=== PATIENT | male | born 1960 | race Two or more races ===

== ENCOUNTER 2020-06-20 14:00 | Outpatient (RCR) | payer OTHER, SELFPAY ==
--- NOTE | 2020-07-01 15:18 | MHC.PT.DC ---
[facility] [place] Office [place] Office [place] Office [address] Sulma Nascimento [address] [phone] F: [phone] F: [phone] F: [phone] F: [phone] Physical Therapy Discharge Report Diagnosis: Back pain Date of Surgery: Date of Evaluation: 05/28/20 Date of Discharge: 06/20/20 Treatments to Date: 7 Cancellations to Date: 0 No Shows to Date: 0 Discharge Status: Achieved Goals Independent with HEP Discharge Summary: 06/20/20- Pt has been pain free for the last few days. He has achieved all goals set for him and is independent with all HEPS. Pt therefore d/c from therapy. Pt was in agreement with the plan. Electronically signed by: Adelia Acosta DPT Please sign and return to therapist. Thank you for your referral.
== END 2020-07-01 15:20 | disposition other institution (70) ==
LOC: HO.PT 14:00
PROVIDERS: PCP Internal Medicine; Visit Provider Student in an Organized Health Care Education/Training Program
DX: M54.5 Low back pain (principal)
CPT/HCPCS: 97110

== ENCOUNTER → 2020-08-23 08:10 | Outpatient (BNVA) | payer OTHER, SELFPAY | PROVIDERS: PCP Physician Assistant; Referring Provider Physician Assistant; Visit Provider Nurse Practitioner Gerontology | DX: E11.42 Type 2 diabetes mellitus with diabetic polyneuropathy (principal); E78.5 Hyperlipidemia, unspecified; I10 Essential (primary) hypertension | CPT/HCPCS: 82947; 99212 ==

== ENCOUNTER 2020-09-20 12:23 | Outpatient (REF) | payer OTHER, SELFPAY | END 2020-09-20 12:24 | disposition home or self-care (01) | LOC: HO.LAB 12:23 | PROVIDERS: PCP Internal Medicine; Visit Provider Internal Medicine | DX: Z20.828 Contact with and (suspected) exposure to other viral communicable diseases (principal) | CPT/HCPCS: 36415; C9803; U0003 ==

== ENCOUNTER → 2020-09-30 12:13 | Outpatient (BNVA) | payer OTHER, SELFPAY | PROVIDERS: PCP Internal Medicine; Visit Provider Nurse Practitioner Gerontology | DX: Z76.89 Persons encountering health services in other specified circumstances (principal) | CPT/HCPCS: Q3014 ==

== ENCOUNTER 2020-10-01 06:20 | Outpatient (REF) | payer OTHER, SELFPAY ==
[2020-10-01 07:38] LABS: Alanine Aminotransferase 39 U/L (0-40); Albumin Level 4.3 g/dL (3.5-5.0); Alkaline Phosphatase 94 U/L (39-117); Anion Gap 13 (12-20); Aspartate Amino Transferase 23 U/L (5-37); Bilirubin Total 0.4 mg/dL (0.0-1.0); Blood Urea Nitrogen 17 mg/dL (9-16); Carbon Dioxide 28 mmol/L (22-29); Chloride 105 mmol/L (96-108); Cholesterol 147 mg/dL; Estimated Glomerular Filt Rate > 60; Glucose Fasting 135 mg/dL (60-99); HDL Cholesterol 38 mg/dL; LDL Cholesterol Calculated 83 mg/dl; Potassium 4.7 mmol/l (3.3-5.1); Sodium 141 mmol/L (135-145); Total Protein 6.7 g/dL (6.5-8.0); Triglycerides 134 mg/dL
[2020-10-01 08:05] LABS: Estimated Average Glucose 123 mg/dL; Hemoglobin A1c % 5.9 %
[2020-10-01 09:09] LABS: Creatinine Urine 136.06 mg/dL; Microalbum/Creatinine Ratio Ur 8.8 ug/mg cr
== END 2020-10-01 06:21 | disposition home or self-care (01) ==
LOC: HO.LAB 06:20
PROVIDERS: PCP Internal Medicine; Visit Provider Nurse Practitioner Gerontology
DX: E11.42 Type 2 diabetes mellitus with diabetic polyneuropathy (principal)
CPT/HCPCS: 36415; 80053; 80061; 82043; 83036

== ENCOUNTER 2020-10-05 07:32 | Outpatient (REF) | payer OTHER, SELFPAY ==
[2020-10-05 09:14] LABS: Creatinine Urine 101.25 mg/dL; Microalbum/Creatinine Ratio Ur 7.9 ug/mg cr
== END 2020-10-05 07:33 | disposition home or self-care (01) ==
LOC: HO.LAB 07:32
PROVIDERS: PCP Internal Medicine; Visit Provider Internal Medicine
DX: E11.39 Type 2 diabetes mellitus with other diabetic ophthalmic complication (principal)
CPT/HCPCS: 82043

== ENCOUNTER 2020-10-09 15:43 | Outpatient (REF) | payer OTHER, SELFPAY | END 2020-10-09 15:44 | disposition home or self-care (01) | LOC: HO.LAB 15:43 | PROVIDERS: Visit Provider Internal Medicine | DX: Z20.822 Contact with and (suspected) exposure to COVID-19 (principal) | CPT/HCPCS: 36415; C9803; U0003 ==

== ENCOUNTER 2020-10-24 15:03 | Outpatient (REF) | payer OTHER, SELFPAY | END 2020-10-24 15:04 | disposition home or self-care (01) | LOC: HO.LAB 15:03 | PROVIDERS: Visit Provider Internal Medicine | DX: Z20.822 Contact with and (suspected) exposure to COVID-19 (principal) | CPT/HCPCS: 36415; C9803; U0003; U0005 ==

== ENCOUNTER → 2020-11-15 10:22 | Outpatient (BNVA) | payer OTHER, SELFPAY | PROVIDERS: PCP Internal Medicine; Visit Provider Student in an Organized Health Care Education/Training Program | DX: M47.816 Spondylosis without myelopathy or radiculopathy, lumbar region (principal); R20.0 Anesthesia of skin | CPT/HCPCS: 99212 ==

== ENCOUNTER → 2021-03-31 07:55 | Outpatient (BNVA) | payer OTHER, SELFPAY | PROVIDERS: PCP Internal Medicine; Visit Provider Nurse Practitioner Gerontology | DX: E11.42 Type 2 diabetes mellitus with diabetic polyneuropathy (principal); E78.5 Hyperlipidemia, unspecified; E66.09 Other obesity due to excess calories; I10 Essential (primary) hypertension; Z68.31 Body mass index [BMI] 31.0-31.9, adult | CPT/HCPCS: 82947; Q3014 ==

== ENCOUNTER 2021-06-18 05:59 | Outpatient (REF) | payer OTHER, SELFPAY ==
[2021-06-18 06:39] LABS: Alanine Aminotransferase 26 U/L (0-40); Albumin Level 4.3 g/dL (3.5-5.0); Alkaline Phosphatase 86 U/L (39-117); Anion Gap 10 (12-20); Aspartate Amino Transferase 19 U/L (5-37); Bilirubin Total 0.5 mg/dL (0.0-1.0); Blood Urea Nitrogen 19 mg/dL (9-16); Carbon Dioxide 29 mmol/L (22-29); Chloride 107 mmol/L (96-108); Cholesterol 181 mg/dL; Estimated Glomerular Filt Rate > 60; Glucose Fasting 129 mg/dL (60-99); HDL Cholesterol 35 mg/dL; LDL Cholesterol Calculated 110 mg/dl; Potassium 4.2 mmol/L (3.3-5.1); Sodium 142 mmol/L (135-145); Total Protein 6.6 g/dL (6.5-8.0); Triglycerides 181 mg/dL
[2021-06-18 09:09] LABS: Creatinine Urine 171.98 mg/dL; Microalbum/Creatinine Ratio Ur 10.4 ug/mg cr
[2021-06-23 13:41] LABS: Vitamin D 25-OH, D2 <4 ng/mL; Vitamin D 25-OH, D3 34 ng/mL; Vitamin D 25-OH, Total 34 ng/mL (30-100)
== END 2021-06-18 06:00 | disposition home or self-care (01) ==
LOC: HO.LAB 05:59
PROVIDERS: PCP Internal Medicine; Visit Provider Internal Medicine
DX: E11.42 Type 2 diabetes mellitus with diabetic polyneuropathy (principal); E78.5 Hyperlipidemia, unspecified; E55.9 Vitamin D deficiency, unspecified
CPT/HCPCS: 36415; 80053; 80061; 82043; 82306

== ENCOUNTER → 2021-07-21 09:39 | Outpatient (BNVA) | payer OTHER, SELFPAY | PROVIDERS: PCP Internal Medicine; Visit Provider Registered Nurse Diabetes Educator | DX: E11.42 Type 2 diabetes mellitus with diabetic polyneuropathy (principal); F17.210 Nicotine dependence, cigarettes, uncomplicated; Z79.4 Long term (current) use of insulin | CPT/HCPCS: 95250 ==

== ENCOUNTER → 2021-08-04 08:19 | Outpatient (BNVA) | payer OTHER, SELFPAY | PROVIDERS: PCP Internal Medicine; Visit Provider Nurse Practitioner Gerontology | DX: E11.42 Type 2 diabetes mellitus with diabetic polyneuropathy (principal); E66.09 Other obesity due to excess calories; E78.5 Hyperlipidemia, unspecified; I10 Essential (primary) hypertension; Z68.31 Body mass index [BMI] 31.0-31.9, adult | CPT/HCPCS: 82947; 99212 ==

== ENCOUNTER 2021-09-24 10:41 | Outpatient (REF) | payer OTHER, SELFPAY | END 2021-09-24 10:42 | disposition home or self-care (01) | LOC: HO.LAB 10:41 | PROVIDERS: Visit Provider Internal Medicine | DX: Z13.89 Encounter for screening for other disorder (principal) | CPT/HCPCS: C9803 ==

== ENCOUNTER 2021-11-05 10:44 | Outpatient (REF) | payer OTHER, SELFPAY ==
--- NOTE | 2021-11-05 11:09 | PFT_ITS ---
INDICATION: COPD. SPIROMETRY: The FEV1 to FVC of 78% with an FEV1 of 3.19 L, which is 117% predicted and an FVC of 4.11 L, which is 120% predicted. No significant response to bronchodilators noted. Maximum voluntary ventilation 100% predicted. LUNG VOLUMES: Total lung capacity 109% predicted with an expiratory reserve volume of 67% predicted. DIFFUSION CAPACITY: DLCO 82% predicted. COMPARISONS: None available. INTERPRETATION: No obstructive nor restrictive ventilatory defects have been identified. No significant response to bronchodilators noted. Normal lung volumes except for slight decrease in the expiratory reserve volume secondary to an elevated BMI. Diffusion capacity is low normal. If asthma is in the differential, a methacholine challenge may be helpful in assessing for hyper-reactive airways, otherwise clinical correlation warranted. Nasir Forde MD MR/MODL / [id number]
== END 2021-11-05 10:45 | disposition home or self-care (01) ==
LOC: HO.RESP 10:44
PROVIDERS: PCP Internal Medicine; Visit Provider Internal Medicine
DX: J44.9 Chronic obstructive pulmonary disease, unspecified (principal)
CPT/HCPCS: 94060; 94727

== ENCOUNTER 2021-11-19 10:40 | Outpatient (REF) | payer OTHER, SELFPAY ==
[2021-11-19 11:39] LABS: MANUAL DIFF FLAG NO
[2021-11-19 12:00] LABS: Basophils Percent Auto 0.1 % (0-2); Eosinophils Absolute Auto 0.2 X10*3/uL (0.0-0.4); Eosinophils Percent Auto 2.1 % (0-4); Hematocrit 46.6 % (42.0-52.0); Hemoglobin 15.8 g/dl (14.0-18.0); Imm Gran Abs Auto 0.02 X10*3/uL (0.00-0.03); Imm Gran Pct Auto 0.3 % (0.0-0.4); Lymphocytes Absolute Auto 1.5 X10*3/uL (1.2-4.9); Lymphocytes Percent Auto 20.6 % (20-40); Mean Corpuscular HGB Conc 33.9 g/dl (31.0-36.0); Mean Corpuscular Hemoglobin 31.1 pg (27.0-33.0); Mean Corpuscular Volume 91.7 fL (80.0-98.0); Mean Platelet Volume 11.7 fL (9.4-12.4); Monocytes Absolute Auto 0.4 X10*3/uL (0.1-1.2); Monocytes Percent Auto 5.6 % (2-11); Neutrophils Absolute Auto 5.3 x10*3/uL (2.0-8.3); Neutrophils Percent Auto 71.3 % (45-73); Platelet Count 206 X10*3/uL (160-400); Red Blood Count 5.08 X10*6/uL (4.60-5.80); Red Cell Distribution Width 12.2 % (11.0-16.0); White Blood Count 7.5 X10*3/uL (4.8-10.8)
[2021-11-19 12:21] LABS: Alanine Aminotransferase 30 U/L (0-40); Albumin Level 4.4 g/dL (3.5-5.0); Alkaline Phosphatase 107 U/L (39-117); Anion Gap 11 (12-20); Aspartate Amino Transferase 19 U/L (5-37); Bilirubin Total 0.4 mg/dL (0.0-1.0); Blood Urea Nitrogen 24 mg/dL (9-16); Calcium 9.9 mg/dL (8.4-10.2); Carbon Dioxide 31 mmol/L (22-29); Chloride 103 mmol/L (96-108); Cholesterol 155 mg/dL; Estimated Glomerular Filt Rate > 60; Glucose Fasting 166 mg/dL (60-99); HDL Cholesterol 32 mg/dL; Potassium 4.7 mmol/L (3.3-5.1); Sodium 140 mmol/L (135-145); Triglycerides 408 mg/dL
[2021-11-19 12:40] LABS: Erythrocyte Sedimentation Rate 5 MM/HR (0-15)
[2021-11-19 13:36] LABS: Creatinine Urine 96.97 mg/dL; Microalbum/Creatinine Ratio Ur 13.4 ug/mg cr
== END 2021-11-19 10:41 | disposition home or self-care (01) ==
LOC: HO.LAB 10:40
PROVIDERS: PCP Internal Medicine; Visit Provider Hospitalist
DX: E78.5 Hyperlipidemia, unspecified (principal); E11.42 Type 2 diabetes mellitus with diabetic polyneuropathy; J45.50 Severe persistent asthma, uncomplicated; R05.3 Chronic cough; F17.200 Nicotine dependence, unspecified, uncomplicated; Z71.6 Tobacco abuse counseling
CPT/HCPCS: 36415; 80053; 80061; 82043; 82785; 85025; 85652; 86003; 99202

== ENCOUNTER → 2021-11-20 08:32 | Outpatient (BNVA) | payer OTHER, SELFPAY | PROVIDERS: PCP Internal Medicine; Visit Provider Nurse Practitioner Gerontology | DX: E11.42 Type 2 diabetes mellitus with diabetic polyneuropathy (principal); I10 Essential (primary) hypertension; E78.5 Hyperlipidemia, unspecified; E66.09 Other obesity due to excess calories; Z68.31 Body mass index [BMI] 31.0-31.9, adult; Z79.4 Long term (current) use of insulin | CPT/HCPCS: 82947; 99212 ==

== ENCOUNTER 2022-01-02 15:26 | Outpatient (REF) | payer OTHER, SELFPAY ==
--- NOTE | ~2022-01-02 | CT_ITS ---
EXAMINATION: CT CHEST SCREENING CLINICAL INFORMATION: Nicotine dependence. 45 year smoker. COMPARISON: None. TECHNIQUE: Multidetector volumetric CT imaging of the chest is performed without contrast using low dose technique. Additional 2D coronal and sagittal reformatted images and axial 3D maximum intensity projection (MIP) images are generated on the CT workstation. This CT examination was performed using dose optimization techniques as appropriate, variously including the following: *Automated exposure control *Adjustment of mA and/or kV according to patient size (this includes techniques or standardized protocols for targeted exams where dose is matched to indication/reason for exam; i.e. extremities or head) *Use of iterative reconstruction technique DLP: 75 mGy-cm FINDINGS: LUNGS: There is a 2 mm calcified nodule right upper lobe image 134/6, 2 mm partially calcified nodule left upper lobe axial image 174/6, 2 mm calcified nodule left upper lobe axial image 174/6, 2 mm nodular thickening along the right minor fissure axial image 220/6 likely a small lymph node, 2 mm noncalcified nodule right upper lobe axial image 215/6, several 3 mm subpleural nodules left lower lobe axial image 276/6, 2 nodule left lower lobe subpleural-based axial image 264/6, several mm nodules adjacent to each other in right middle lobe 288/6 and 278/6. Image 280/6, 3 mm nodule right lower lobe axial image 343/6. MEDIASTINUM: The thyroid lobes are symmetrical and normal. The central trachea and the bronchi are widely patent. The heart size and the great vessels are normal caliber. No abnormal size mediastinal or hilar lymph nodes seen. Trace coronary artery calcifications seen. There is no pericardial effusion. PLEURA: There is no pleural effusion. No pleural mass or thickening. AXILLA: There are small shotty lymph nodes in the axilla. The chest wall appears unremarkable. UPPER ABDOMEN: Visualized liver, spleen, pancreas and bilateral adrenal glands are unremarkable. OSSEOUS STRUCTURES: No lytic or sclerotic process seen. CT/CT lung screening IMPRESSION: Several 2 mm and 3 mm calcified and noncalcified nodules. Otherwise lungs are clear. ASSESSMENT: Lung-RADS category 2: Benign. RECOMMENDATION: Low dose annual CT chest.
== END 2022-01-02 15:27 | disposition home or self-care (01) ==
LOC: HO.CT 15:26
PROVIDERS: PCP Internal Medicine; Visit Provider Physician Assistant Medical
DX: Z12.2 Encounter for screening for malignant neoplasm of respiratory organs (principal); F17.210 Nicotine dependence, cigarettes, uncomplicated
CPT/HCPCS: 71271

== ENCOUNTER → 2022-01-14 10:31 | Outpatient (BNVA) | payer OTHER, SELFPAY | PROVIDERS: PCP Internal Medicine; Visit Provider Hospitalist | DX: J45.40 Moderate persistent asthma, uncomplicated (principal); R05.3 Chronic cough; R91.8 Other nonspecific abnormal finding of lung field; F17.210 Nicotine dependence, cigarettes, uncomplicated; Z79.899 Other long term (current) drug therapy | CPT/HCPCS: 99212 ==

== ENCOUNTER 2022-04-07 12:05 | Outpatient (REF) | payer OTHER, SELFPAY ==
[2022-04-07 12:44] LABS: COVID-19 Test Negative (Negative)
== END 2022-04-07 12:06 | disposition home or self-care (01) ==
LOC: HO.LAB 12:05
PROVIDERS: Visit Provider Internal Medicine
DX: Z20.822 Contact with and (suspected) exposure to COVID-19 (principal)
CPT/HCPCS: 87635; C9803

== ENCOUNTER 2022-04-20 11:06 | Outpatient (REF) | payer OTHER, SELFPAY ==
--- NOTE | ~2022-04-20 | CT_ITS ---
EXAMINATION: CT HEAD WITHOUT CONTRAST CLINICAL INFORMATION: Headache. COMPARISON: 09/21/[address] scan. TECHNIQUE: Contiguous axial imaging was performed from the skull base to vertex without intravenous administration of contrast. Coronal and sagittal reformatted images were obtained. This CT examination was performed using dose optimization techniques as appropriate, variously including the following: *Automated exposure control *Adjustment of mA and/or kV according to patient size (this includes techniques or standardized protocols for targeted exams where dose is matched to indication/reason for exam; i.e. extremities or head) *Use of iterative reconstruction technique DLP: 788 mGy-cm FINDINGS: There is no evidence of acute intracranial hemorrhage or territorial infarction. No abnormal mass effect or midline shift is seen. Lee to white matter differentiation is well preserved. No extra-axial fluid collections are identified. The ventricles are normal in size. There is no abnormal attenuation within the brain parenchyma. Incidental partial empty sella without associated abnormality. The osseous structures and soft tissues are normal. The mastoid air cells and visualized portions of the paranasal sinuses are well aerated. CT/CT head/brain wo con IMPRESSION: No acute intracranial pathology.
== END 2022-04-20 11:07 | disposition home or self-care (01) ==
LOC: HO.CT 11:06
PROVIDERS: Visit Provider Internal Medicine
DX: R51.9 Headache, unspecified (principal)
CPT/HCPCS: 70450

== ENCOUNTER → 2022-07-23 11:20 | Outpatient (BNVA) | payer OTHER, SELFPAY | PROVIDERS: PCP Internal Medicine; Visit Provider Hospitalist | DX: J45.40 Moderate persistent asthma, uncomplicated (principal); R05.3 Chronic cough; R91.8 Other nonspecific abnormal finding of lung field; F17.210 Nicotine dependence, cigarettes, uncomplicated | CPT/HCPCS: 99212 ==

== ENCOUNTER 2022-08-14 07:07 | Outpatient (REF) | payer OTHER, SELFPAY ==
[2022-08-14 08:27] LABS: Alanine Aminotransferase 24 U/L (0-40); Albumin Level 4.2 g/dL (3.5-5.0); Alkaline Phosphatase 92 U/L (39-117); Anion Gap 12 (12-20); Aspartate Amino Transferase 17 U/L (5-37); Bilirubin Total 0.5 mg/dL (0.0-1.0); Blood Urea Nitrogen 21 mg/dL (9-16); Calcium 9.6 mg/dL (8.4-10.2); Carbon Dioxide 27 mmol/L (22-29); Chloride 104 mmol/L (96-108); Cholesterol 183 mg/dL; Estimated Glomerular Filt Rate > 60; Glucose Fasting 147 mg/dL (60-99); HDL Cholesterol 35 mg/dL; LDL Cholesterol Calculated 114 mg/dl; Potassium 4.2 mmol/L (3.3-5.1); Sodium 139 mmol/L (135-145); Total Protein 6.5 g/dL (6.5-8.0); Triglycerides 171 mg/dL; Vitamin D 25-OH Total 22.2 ng/mL (>30)
[2022-08-14 09:49] LABS: Creatinine Urine 224.12 mg/dL; Microalbum/Creatinine Ratio Ur 5.3 ug/mg cr
== END 2022-08-14 07:08 | disposition home or self-care (01) ==
LOC: HO.LAB 07:07
PROVIDERS: PCP Internal Medicine; Visit Provider Internal Medicine
DX: J44.9 Chronic obstructive pulmonary disease, unspecified (principal); E78.5 Hyperlipidemia, unspecified; E55.9 Vitamin D deficiency, unspecified; E11.42 Type 2 diabetes mellitus with diabetic polyneuropathy
CPT/HCPCS: 36415; 80053; 80061; 82043; 82306

== ENCOUNTER 2022-10-20 14:19 | Outpatient (REF) | payer OTHER, SELFPAY ==
[2022-10-20 15:04] LABS: Hematocrit 45.1 % (42.0-52.0); Hemoglobin 15.5 g/dl (14.0-18.0); Mean Corpuscular HGB Conc 34.4 g/dl (31.0-36.0); Mean Corpuscular Hemoglobin 30.3 pg (27.0-33.0); Mean Corpuscular Volume 88.3 fL (80.0-98.0); Mean Platelet Volume 11.7 fL (9.4-12.4); Platelet Count 223 X10*3/uL (160-400); Red Blood Count 5.11 X10*6/uL (4.60-5.80); Red Cell Distribution Width 12.6 % (11.0-16.0); White Blood Count 7.2 X10*3/uL (4.8-10.8)
[2022-10-20 15:37] LABS: Alanine Aminotransferase 19 U/L (0-40); Albumin Level 4.4 g/dL (3.5-5.0); Alkaline Phosphatase 97 U/L (39-117); Anion Gap 14 (12-20); Aspartate Amino Transferase 24 U/L (5-37); Bilirubin Total 0.4 mg/dL (0.0-1.0); Blood Urea Nitrogen 22 mg/dL (9-16); Calcium 9.6 mg/dL (8.4-10.2); Carbon Dioxide 25 mmol/L (22-29); Chloride 106 mmol/L (96-108); Cholesterol 173 mg/dL; Estimated Glomerular Filt Rate > 60; Glucose Fasting 107 mg/dL (60-99); Glucose Random 107 mg/dL (60-115); HDL Cholesterol 36 mg/dL; Potassium 3.9 mmol/L (3.3-5.1); Sodium 141 mmol/L (135-145); Total Protein 6.8 g/dL (6.5-8.0); Triglycerides 416 mg/dL
[2022-10-20 15:51] LABS: TSH reflex Free T4 0.81 uIU/mL (0.32-4.0)
[2022-10-20 15:54] LABS: Vitamin D 25-OH Total 14.7 ng/mL (>30)
[2022-10-20 16:25] LABS: Creatinine Urine 144.65 mg/dL; Microalbum/Creatinine Ratio Ur 15.9 ug/mg cr
== END 2022-10-20 14:20 | disposition home or self-care (01) ==
LOC: HO.LAB 14:19
PROVIDERS: PCP Internal Medicine; Visit Provider Nurse Practitioner Family
DX: Z01.812 Encounter for preprocedural laboratory examination (principal); Z13.29 Encounter for screening for other suspected endocrine disorder; E11.42 Type 2 diabetes mellitus with diabetic polyneuropathy; E78.5 Hyperlipidemia, unspecified; E55.9 Vitamin D deficiency, unspecified
CPT/HCPCS: 36415; 80048; 80053; 80061; 82043; 82306; 84443; 85027

== ENCOUNTER 2022-12-11 06:49 | Outpatient (REF) | payer OTHER, SELFPAY ==
[2022-12-11 08:09] LABS: Alanine Aminotransferase 23 U/L (0-40); Albumin Level 3.9 g/dL (3.5-5.0); Alkaline Phosphatase 97 U/L (39-117); Anion Gap 14 (12-20); Aspartate Amino Transferase 17 U/L (5-37); Bilirubin Total 0.5 mg/dL (0.0-1.0); Blood Urea Nitrogen 22 mg/dL (9-16); Calcium 8.9 mg/dL (8.4-10.2); Carbon Dioxide 24 mmol/L (22-29); Chloride 108 mmol/L (96-108); Cholesterol 169 mg/dL; Estimated Glomerular Filt Rate > 60; Glucose Fasting 118 mg/dL (60-99); HDL Cholesterol 34 mg/dL; LDL Cholesterol Calculated 107 mg/dl; Potassium 4.2 mmol/L (3.3-5.1); Sodium 142 mmol/L (135-145); Triglycerides 140 mg/dL
[2022-12-11 08:39] LABS: Creatinine Urine 165.53 mg/dL; Microalbum/Creatinine Ratio Ur 7.2 ug/mg cr
== END 2022-12-11 06:50 | disposition home or self-care (01) ==
LOC: HO.LAB 06:49
PROVIDERS: PCP Internal Medicine; Visit Provider Internal Medicine
DX: E11.42 Type 2 diabetes mellitus with diabetic polyneuropathy (principal); E78.5 Hyperlipidemia, unspecified
CPT/HCPCS: 36415; 80053; 80061; 82043

== ENCOUNTER 2023-01-22 09:12 | Outpatient (REF) | payer OTHER, SELFPAY ==
--- NOTE | ~2023-01-22 | CT_ITS ---
EXAMINATION: CT CHEST SCREENING CLINICAL INFORMATION: Current smoker. 50 pack year history. COMPARISON: Previous chest CT most recent December 2021 TECHNIQUE: Multidetector volumetric CT imaging of the chest is performed without contrast using low dose technique. Additional 2D coronal and sagittal reformatted images and axial 3D maximum intensity projection (MIP) images are generated on the CT workstation. This CT examination was performed using dose optimization techniques as appropriate, variously including the following: *Automated exposure control *Adjustment of mA and/or kV according to patient size (this includes techniques or standardized protocols for targeted exams where dose is matched to indication/reason for exam; i.e. extremities or head) *Use of iterative reconstruction technique DLP: 77 mGy-cm FINDINGS: LUNGS: Mild emphysema. Stable small pulmonary nodules. Largest pulmonary nodule is a 4 mm peripheral or subpleural nodule in the right lower lobe axial image 388 series 5. No new pulmonary nodule. No endobronchial or endotracheal lesion. MEDIASTINUM: The mediastinum is normal. CORONARY ARTERY CALCIFICATION: Moderate to severe PLEURA: There is no pleural effusion. No pleural mass or thickening. AXILLA: No lymphadenopathy. UPPER ABDOMEN: Unremarkable OSSEOUS STRUCTURES: Degenerative changes of the spine. CT/CT lung screening IMPRESSION: Mild emphysema. Stable small pulmonary nodules. Moderate to severe coronary artery calcification. ASSESSMENT: Lung-RADS category 2: Benign RECOMMENDATION: Annual low-dose chest CT follow-up recommended
== END 2023-01-22 09:13 | disposition home or self-care (01) ==
LOC: HO.CT 09:12
PROVIDERS: PCP Internal Medicine; Visit Provider Physician Assistant Medical
DX: J44.9 Chronic obstructive pulmonary disease, unspecified (principal); J45.40 Moderate persistent asthma, uncomplicated; R01.1 Cardiac murmur, unspecified; R91.8 Other nonspecific abnormal finding of lung field; F17.210 Nicotine dependence, cigarettes, uncomplicated; Z79.899 Other long term (current) drug therapy
CPT/HCPCS: 71271; 99212

== ENCOUNTER → 2023-02-19 10:16 | Outpatient (REF) | payer OTHER, SELFPAY ==
--- NOTE | 2023-02-19 10:19 | CA_ITS ---
Transthoracic Echocardiogram Patient (Last, First, Middle): Oscar Barnes, Gender: Male Date of : 1960 Age: 62 Procedure Date: 02/19/2023 Procedure Type: Transthoracic Echocardiogram Location: OP Height: 167.64 cm Weight: 88.45 kg BSA: 1.98 m2 Heart Rate: 77 bpm BP: 120 / 75 mmHg Application Development Liaison: LOLA Referring MD: Nasir Forde MD Symptoms: R01.1 - Cardiac murmur, unspecified Study Quality: Adequate ECG Rhythm: Sinus Conclusions: - Normal left ventricular size, thickness, systolic function, and wall motion. The visually estimated ejection fraction is between 55-60%. - Normal right ventricular cavity size and systolic function. - There is mild aortic valve stenosis. Findings Left Ventricle Normal left ventricular size, thickness, systolic function, and wall motion. The visually estimated ejection fraction is between 55-60%. Abnormal diastolic function is noted. Spectral Doppler is indicative of a pseudonormal filling pattern. Elevated filling pressures. Right Ventricle Normal right ventricular cavity size and systolic function. Atria The left atrium is normal in size. The right atrium is normal in size. Aortic Valve The aortic valve was not well visualized. There is mild calcification of the aortic valve. There is mild aortic valve stenosis. There is no aortic valve regurgitation. Mitral Valve Normal mitral valve structure and function. There is no mitral valve regurgitation. There is no mitral valve stenosis. Pulmonic Valve Normal pulmonic valve structure and function. There is no pulmonic valve regurgitation. Tricuspid Valve Normal tricuspid valve structure and function. There is no tricuspid valve regurgitation. Great Vessels All visible segments of the aorta are normal in size. The visualized portions of the pulmonary artery and branches are normal. Venous The inferior vena cava is normal in size and collapses greater than 50% with inspiration. Pericardium/Pleural There is no evidence of pericardial effusion. Measurements 2D Linear Measurements IVSd: 0.99 0.6-0.9/0.6-1.0 cm LVIDd: 3.64 3.9-5.3/4.2-5.9 cm LVIDd Index: 1.84 2.4-3.2/2.2-3.1 cm/m2 LVIDs: 2.78 2.0-3.6 cm LVPWd: 0.90 0.7-1.1 cm LA Diam: 3.10 2.7-3.8/3.0-4.0 cm LAIDs Index: 1.57 1.5-2.3 cm/m2 LV Mass: 125.53 67-162/88-224 g LV Mass Index: 63.40 43-95/49-115 g/m2 LVOT Diam: 2.10 3.0+(-)1.3 cm 2D Systolic Function EF 4C: 52.60 >55% EF 2C: 59.10 >55% EF BiP: 56.00 >55% Mitral Valve MV Pk E: 1.33 MV PK A: 1.31 MV Decel Time: 270.00 E/A: 1.00 E'Lateral: 6.31 E'Medial: 5.98 E/E' Med: 22.20 E/E' Lat: 21.10 PHT: 79.00 MVA PHT: 2.78 Decel [place]: 4.91 Aortic Valve AoV Pk Juan: 2.30 AoV Mn Juan: 1.62 AoV VTI: 0.51 AoV Pk Grad: 21.00 Aov Mn Grad: 12.00 ARCELIA Cont.VTI: 1.62 LVOT LVOT Pk Juan: 1.13 LVOT Mn Juan: 0.77 LVOT VTI: 0.24 LVOT Pk Grad: 5.00 LVOT Mn Grad: 3.00 LVOT Diam: 2.10 LVOT Area: 3.46 Diastolic Function MV Pk E: 1.33 MV Pk A: 1.31 E/A: 1.00 E'Medial: 5.98 E/E' Med: 22.20 E' Laterial: 6.31 E/E' Lat: 21.10 Right Ventricle TAPSE (mm): 21.70 TVS' Juan: 11.30 Tricuspid Valve RA Press: 3.00 Great Vessels Aorta Sinus of Valsalva: 3.30 2.0-3.5 cm Ao Asc: 3.30 2.1-3.4 cm Pulmonary Valve MD Pk Juan: 1.02 Updated in Other Vendor System with Status of Final Bladimir Tom MD electronically signed on 02/20/2023 9:07:44 PM with status of Final
== END ==
LOC: HO.CARD 10:16
PROVIDERS: Visit Provider Hospitalist
DX: R01.1 Cardiac murmur, unspecified (principal)
CPT/HCPCS: 93306

== ENCOUNTER 2023-04-15 10:08 | Outpatient (AMB) | payer OTHER, SELFPAY ==
--- NOTE | 2023-04-15 10:34 | A.OFFPC_ITS ---
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 Accompanied by: Self / Same As Patient Allergies Penicillins [PENICILLINS] Allergy (Intermediate, Verified 04/15/23 10:43) THROAT CLOSES varenicline Allergy (Intermediate, Verified 04/15/23 10:43) inadequate response barium sulfate Adverse Reaction (Intermediate, Verified 04/15/23 10:43) inadequate response Medication List - Last Reconciled 04/15/23 by Bibi Frank MD albuterol sulfate 2.5 mg (3 mL) inhalation Q6H PRN 30 days atorvastatin 40 mg PO BEDTIME blood sugar diagnostic (FreeStyle Lite Strips) 1 strip miscellaneous TID 30 days blood-glucose meter (FreeStyle Lite Meter kit) As directed 3x/day budesonide-formoterol 160-4.5 mcg/actuation (Symbicort) 2 puffs inhalation BID 30 days ilsdnofogo-khofodut-tnlqcmvabw 160-9-4.8 mcg/actuation (Breztri Aerosphere) 2 inhalations inhalation BID 30 days cholecalciferol (vitamin D3) 50 mcg PO DAILY 90 days cyclobenzaprine 10 mg PO BEDTIME PRN 30 days dulaglutide (Trulicity) 3 mg (0.5 mL) subcut QWEEK 90 days fenofibrate 54 mg PO DAILY 90 days fluticasone propionate 50 mcg/actuation 2 sprays intranasal DAILY 30 days inhalational spacing device (Aerochamber MV spacer) As directed insulin glargine U-300 conc (Toujeo Max U-300 SoloStar) 44 units (0.1467 mL) subcut DAILY 90 days lancets (FreeStyle Lancets) As directed three time a day lisinopril 10 mg PO DAILY 90 days montelukast (Singulair) 10 mg PO BEDTIME 30 days naproxen 500 mg PO Q12H PRN 90 days omeprazole 20 mg PO DAILY pen needle, diabetic (BD Ultra-Fine Lupe Pen Needle) As directed three times a day sumatriptan succinate 25 mg PO Q2-4H PRN 30 days Tobacco use date assessed: 10/20/22 Dental Screening Dental Screen Date: 04/15/23 Did you have a dental visit in the last 12 months?: No Did you have a dental problem in the last 6 months where you did not have access to dental care?: No Was dental information given to patient?: Yes HPI HPI Comments History of Present Illness Details This is a 63-year-old male with diabetes mellitus type 2 on long-term current use of insulin, hypertension, hyperlipidemia and COPD that comes today for follow-up on his conditions. A1c within goal. Blood pressure within goal. LDL not on goal and I will increase atorvastatin. COPD stable with long standing inhaler and use rescue inhaler as needed. No chest pain or shortness of breath. [facility] Medical History (Updated 04/15/23 @ 12:26 by Bibi Frank MD) Asthma Chronic cough COPD (chronic obstructive pulmonary disease) Essential hypertension GERD (gastroesophageal reflux disease) Mild non proliferative diabetic retinopathy Murmur Obesity due to excess calories Personal history of nicotine dependence Pulmonary nodules Right shoulder pain Type 2 diabetes mellitus with diabetic polyneuropathy Surgical History History of blepharoplasty History of eye surgery Family History Father Diabetes Asthma Mother Liver failure Daughter In good health Son In good health Sister No problems noted. Brother No problems noted. Social History Household Members: Spouse and Family Housing: House Alcohol intake: current Alcohol intake frequency: a few times a month Alcohol type: beer Patient Tobacco Use Status: Current everyday Tobacco user Tobacco use type: Cigarette Cigarettes Per Day: 10 Years Smoked: (onset 17, 1/2ppd x 44yrs, 22pyh) e-Cigarette/Vaping Use: Never Used Second Hand Smoke Exposure: No service: No Current occupational status: disabled Cognitive needs: No Hearing needs: No Vision needs: Yes Questionnaire Thrive Questionnaire Date Thrive assessed: 12/14/22 DRU-7 AMB Questionnaire DRU-7 Date DRU - 7 assessed: 12/14/22 Source: Developed by Drs. Terry Griffith, Paulina Trinidad, Ze Smith and colleagues, with an educational romain from [employer]. Review of Systems Const All systems reviewed & are unremarkable except as noted in HPI and below Eyes Reports no additional complaints, Denies change in vision and Denies other visual disturbances Card Denies chest pain at rest, Denies chest pain with activity, Denies edema, Denies irregular heart rhythm, Denies claudication, Denies dyspnea, Denies dyspnea on exertion, Denies orthopnea, Denies paroxysmal nocturnal dyspnea and Denies slow heart rate Resp Denies cough, Denies dyspnea and Denies dyspnea on exertion GI Denies abdominal pain, Denies change in bowel habits, Denies excessive flatus, Denies nausea and Denies vomiting Denies urinary hesitancy, Denies urinary incontinence and Denies urinary urgency Musc Denies abnormal gait, Denies atrophy, Denies deformity and Denies limited range of motion Skin/Breast Denies bleeding lesions, Denies changing lesions and Denies rash Neuro Denies abnormal gait and Denies lack of coordination Physical exam (Primary Care) Vital Signs: Last Vital Signs BP 110/78 04/15/23 10:40 BMI result Body Mass Index 30.5 Tobacco/Smoking Status: Tobacco use Status Tobacco use date assessed 10/20/22 04/15/23 10:35 Patient Tobacco Use Status Current everyday Tobacco 04/15/23 10:35 Tobacco use type Cigarette 04/15/23 10:35 e-Cigarette/Vaping Use Never Used 04/15/23 10:35 Thrive Assessment: Date of Thrive Assessment Date Thrive assessed 12/14/22 04/15/23 10:35 Eyes General: appearance normal, both eyes and all related structures Eyelids: Yes eyelids normal Conjunctivae: conjunctivae normal Neck Neck: Yes normal visual inspection and Yes supple Resp Effort & Inspection: normal respiratory effort Auscultation: clear to auscultation bilaterally Cardio Jugular venous distension: no JVD Rate: regular rate Rhythm: regular rhythm Heart sounds: S1 normal heart sound present and S2 normal heart sound present Extrem General: Yes full ROM Results AMB Hemoglobin A1c AMB Hemoglobin A1c 6.6 % Last Edit by MARTÍNEZ [place] on 04/15/23 10:4 3 Results Reviewed Results Reviewed: Laboratory Last Values Hgb A1c (Clinic) 6.6 % (4.0-6.0) H 04/15/23 10:42 Assessment and Plan Assessment & Plan (1) Diabetes mellitus, with long-term current use of insulin: Code(s): E11.9 - Type 2 diabetes mellitus without complications; 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 A1c goal is equal or less than 7%. (2) COPD (chronic obstructive pulmonary disease): Code(s): J44.9 - Chronic obstructive pulmonary disease, unspecified Plan: Continue longstanding inhaler. Use rescue inhaler as needed. (3) Hyperlipidemia LDL goal <70: Code(s): E78.5 - Hyperlipidemia, unspecified Plan: Increase atorvastatin from 40 mg to 80 mg. LDL goal should be less than 70. (4) Essential hypertension: Code(s): I10 - Essential (primary) hypertension Plan: Continue lisinopril. Blood pressure goal is equal or less than 130/80. 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
[2023-04-15 10:40] VITALS: BP 110/78; BMI 30.5
== END 2023-04-15 11:13 | disposition home or self-care (01) ==
PROVIDERS: Visit Provider Internal Medicine
DX: E11.9 Type 2 diabetes mellitus without complications (principal); Z79.4 Long term (current) use of insulin; J44.9 Chronic obstructive pulmonary disease, unspecified; I10 Essential (primary) hypertension; E78.5 Hyperlipidemia, unspecified
CPT/HCPCS: 83036; 99214

== ENCOUNTER 2023-12-03 06:21 | Outpatient (REF) | payer OTHER, SELFPAY ==
[2023-12-03 08:39] LABS: Creatinine Urine 221.75 mg/dL; Microalbum/Creatinine Ratio Ur 6.7 ug/mg cr (<30)
[2023-12-03 09:04] LABS: Alanine Aminotransferase 21 U/L (0-40); Albumin Level 4.1 g/dL (3.5-5.0); Alkaline Phosphatase 105 U/L (39-117); Anion Gap 12 (12-20); Aspartate Amino Transferase 18 U/L (5-37); Bilirubin Total 0.4 mg/dL (0.0-1.0); Blood Urea Nitrogen 27 mg/dL (9-16); Calcium 9.3 mg/dL (8.4-10.2); Carbon Dioxide 27 mmol/L (22-29); Chloride 106 mmol/L (96-108); Cholesterol 166 mg/dL (<200); Estimated Glomerular Filt Rate > 60; Glucose Fasting 207 mg/dL (60-99); HDL Cholesterol 34 mg/dL (>40); LDL Cholesterol Calculated 101 mg/dL (<100); Sodium 141 mmol/L (135-145); Total Protein 6.6 g/dL (6.5-8.0); Triglycerides 155 mg/dL (<150)
[2023-12-03 09:10] LABS: Vitamin D 25-OH Total 18.5 ng/mL (>30)
== END 2023-12-03 06:22 | disposition home or self-care (01) ==
LOC: HO.LAB 06:21
PROVIDERS: PCP Internal Medicine; Visit Provider Internal Medicine
DX: E78.5 Hyperlipidemia, unspecified (principal); E11.9 Type 2 diabetes mellitus without complications; E55.9 Vitamin D deficiency, unspecified; Z79.4 Long term (current) use of insulin
CPT/HCPCS: 36415; 80053; 80061; 82043; 82306; 82570

== ENCOUNTER 2023-12-06 14:01 | Outpatient (AMB) | payer OTHER, SELFPAY ==
--- NOTE | 2023-12-06 14:07 | MHC.PC.OV ---
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 Accompanied by: Self / Same As Patient Allergies Penicillins [PENICILLINS] Allergy (Intermediate, Verified 12/06/23 14:27) THROAT CLOSES varenicline Allergy (Intermediate, Verified 12/06/23 14:27) inadequate response barium sulfate Adverse Reaction (Intermediate, Verified 12/06/23 14:27) inadequate response Medication List - Last Reconciled 12/06/23 by Bibi Frank MD albuterol sulfate 2.5 mg (3 mL) inhalation Q6H PRN 30 days atorvastatin 80 mg PO BEDTIME 90 days blood sugar diagnostic (FreeStyle Lite Strips) 1 strip miscellaneous TID 30 days blood-glucose meter (FreeStyle Lite Meter kit) As directed 3x/day budesonide-formoterol 160-4.5 mcg/actuation (Symbicort) 2 puffs inhalation BID 30 days htddzfbbhg-hneexnfj-bvydrppbgy 160-9-4.8 mcg/actuation (Breztri Aerosphere) 2 inhalations inhalation BID 30 days cholecalciferol (vitamin D3) 50 mcg PO DAILY 90 days cyclobenzaprine 10 mg PO BEDTIME PRN 30 days dulaglutide (Trulicity) 3 mg (0.5 mL) subcut QWEEK 90 days fenofibrate 54 mg PO DAILY 90 days fluticasone propionate 50 mcg/actuation 2 sprays intranasal DAILY 30 days inhalational spacing device (Aerochamber MV spacer) As directed insulin glargine U-300 conc (Toujeo Max U-300 SoloStar) 44 units (0.1467 mL) subcut DAILY 90 days lancets (FreeStyle Lancets) As directed three time a day lisinopril 10 mg PO DAILY 90 days montelukast 10 mg PO BEDTIME naproxen 500 mg PO Q12H PRN 90 days omeprazole 20 mg PO DAILY pen needle, diabetic (BD Ultra-Fine Lupe Pen Needle) As directed three times a day sumatriptan succinate 25 mg PO Q2-4H PRN 30 days Tobacco use date assessed: 12/06/23 Dental Screening Dental Screen Date: 12/06/23 Did you have a dental visit in the last 12 months?: No Did you have a dental problem in the last 6 months where you did not have access to dental care?: No Was dental information given to patient?: Patient has dentist HPI HPI Comments History of Present Illness Details This is a 63-year-old male with diabetes mellitus type 2 on long-term current use of insulin, hypertension, hyperlipidemia, COPD and GERD that comes today for follow-up on his conditions. A1c elevated and I will increase insulin. Blood pressure stable. LDL not on goal and I will add Zetia. COPD stable with long-acting inhaler and this is follow by pulmonology which he needs to call to make an appointment for follow-up. GERD has been stable with PPIs. He denies any chest pain or shortness of breath. [facility], [facility] Medical History (Updated 12/06/23 @ 16:15 by Bibi Frank MD) Murmur Pulmonary nodules Personal history of nicotine dependence Chronic cough Asthma COPD (chronic obstructive pulmonary disease) Right shoulder pain Essential hypertension Obesity due to excess calories GERD (gastroesophageal reflux disease) Mild non proliferative diabetic retinopathy Type 2 diabetes mellitus with diabetic polyneuropathy Surgical History History of blepharoplasty History of eye surgery Family History Father Diabetes Asthma Mother Liver failure Daughter In good health Son In good health Sister No problems noted. Brother No problems noted. Social History Household Members: Spouse and Family Housing: House Alcohol intake: current Alcohol intake frequency: a few times a month Alcohol type: beer Patient Tobacco Use Status: Current everyday Tobacco user Tobacco use type: Cigarette Cigarettes Per Day: 10 Years Smoked: (onset 17, 1/2ppd x 44yrs, 22pyh) e-Cigarette/Vaping Use: Never Used Second Hand Smoke Exposure: No service: No Current occupational status: disabled Cognitive needs: No Hearing needs: No Vision needs: Yes Questionnaire PHQ-9 Over the last 2 weeks, how often have you been bothered by any of the following problems? 1. Little interest or pleasure in doing things: not at all 2. Feeling down, depressed, or hopeless: not at all 3. Trouble falling or staying asleep, or sleeping too much: not at all 4. Feeling tired or having little energy: not at all 5. Poor appetite or overeating: not at all 6. Feeling bad about yourself - or that you are a failure or have let yourself or your family down: not at all 7. Trouble concentrating on things, such as reading the newspaper or watching television: not at all 8. Moving or speaking so slowly that other people could have noticed. Or the opposite - being so fidgety or restless that you have been moving around a lot more than usual: not at all 9. Thoughts that you would be better off or of hurting yourself in some way: not at all Total score: 0 Depression Screening Interpretation: Negative Depression Screening Done: Yes 80087 - PHQ-9 Billing: Yes Source: Developed by Drs. Terry Griffith, Paulina Trinidad, Ze Smith and colleagues, with an educational romain from [email or web address]. Thrive Questionnaire Date Thrive assessed: 12/06/23 I am a: Patient What is your living situation today?: I have a steady place to live Within the past 12 months, did the food you bought not last and you didn't have the money to get more?: Never true Within the past 12 months, did you worry whether your food would run out before you got money to buy more?: Never true Do you have trouble paying for medicines?: No Do you have trouble getting transportation to medical appointments?: No Do you have trouble paying your heating and electricity bill?: No Do you have trouble taking care of your child, family member or friend?: No Do you have trouble with day-to-day activities such as bathing, preparing meals, shopping, managing finances, etc.?: No Are you currently unemployed and looking for a job?: No Are you interested in more education?: No Please select the resources that you would like help with: None Currently or been in a relationship where the following occur: no concerns reported THRIVE Score: 0 AUDIT C Alcohol Use Questionnaire (AUDIT-C) 1. How often do you have a drink containing alcohol?: Monthly or less 2. How many drinks containing alcohol do you have on a typical day when you are drinking?: 1 or 2 3. How often do you have six or more drinks on one occasion?: Never Total Score: 1 Score Reviewed/Action Taken: No DRU-7 AMB Questionnaire DRU-7 Date DRU - 7 assessed: 12/06/23 Feeling nervous, anxious, or on edge: 0 = Not at all Not being able to stop or control worryin = Not at all Worrying too much about different things: 0 = Not at all Trouble relaxin = Not at all Being so restless that it is hard to sit still: 0 = Not at all Becoming easily annoyed or irritable: 0 = Not at all Feeling afraid as if something awful might happen: 0 = Not at all Total DRU-7 score (0-4 normal; 5-9 mild; 10-14 moderate; 15-21 severe): 0 Source: Developed by Drs. Terry Griffith, Paulina Trinidad, Ze Smith and colleagues, with an educational romain from [email or web address]. DRU-7 Assessment Billing DRU-7 Assessment Tool: DRU-7 Assessment 14661 Review of Systems Const All systems reviewed & are unremarkable except as noted in HPI and below Eyes Reports no additional complaints, Denies change in vision and Denies other visual disturbances Card Denies chest pain at rest, Denies chest pain with activity, Denies edema, Denies irregular heart rhythm, Denies claudication, Denies dyspnea, Denies dyspnea on exertion, Denies orthopnea, Denies paroxysmal nocturnal dyspnea and Denies slow heart rate Resp Denies cough, Denies dyspnea and Denies dyspnea on exertion GI Denies abdominal pain, Denies change in bowel habits, Denies excessive flatus, Denies nausea and Denies vomiting Denies urinary hesitancy, Denies urinary incontinence and Denies urinary urgency Musc Denies abnormal gait, Denies atrophy, Denies deformity and Denies limited range of motion Skin/Breast Denies bleeding lesions, Denies changing lesions and Denies rash Neuro Denies abnormal gait and Denies lack of coordination Physical exam (Primary Care) Vital Signs: Last Vital Signs BP 130/70 12/06/23 14:10 BMI result Body Mass Index 30.5 Tobacco/Smoking Status: Tobacco use Status Tobacco use date assessed 12/06/23 12/06/23 14:18 Patient Tobacco Use Status Current everyday Tobacco 12/06/23 14:07 Tobacco use type Cigarette 12/06/23 14:07 e-Cigarette/Vaping Use Never Used 12/06/23 14:07 PHQ-9: PHQ-9 Score PHQ-9: Total score 0 12/06/23 14:37 Depression Screening Interpretation: Negative Thrive Assessment: Date of Thrive Assessment Date Thrive assessed 12/06/23 12/06/23 14:18 Currently or been in a relationship where the following occur: no concerns reported Eyes General: appearance normal, both eyes and all related structures Eyelids: Yes eyelids normal Conjunctivae: conjunctivae normal Neck Neck: Yes normal visual inspection and Yes supple Resp Effort & Inspection: normal respiratory effort Auscultation: clear to auscultation bilaterally Cardio Jugular venous distension: no JVD Rate: regular rate Rhythm: regular rhythm Heart sounds: S1 normal heart sound present and S2 normal heart sound present Extrem General: Yes full ROM Results AMB Hemoglobin A1c AMB Hemoglobin A1c 7.6 % Last Edit by MARTÍNEZ [place] on 12/06/23 14:39 Results Reviewed Results Reviewed: Laboratory Last Values Hgb A1c (Clinic) 7.6 % (4.0-6.0) H 12/06/23 14:07 Assessment and Plan Assessment & Plan (1) Diabetes mellitus, with long-term current use of insulin: Code(s): E11.9 - Type 2 diabetes mellitus without complications; Z79.4 - group home (current) use of insulin Plan: Continue Trulicity. Increase insulin. A1c goal is equal or less than 7%. (2) COPD (chronic obstructive pulmonary disease): Code(s): J44.9 - Chronic obstructive pulmonary disease, unspecified Plan: Continue Symbicort. Use rescue inhaler as needed. Follow-up with pulmonology. (3) Hyperlipidemia LDL goal <70: Code(s): E78.5 - Hyperlipidemia, unspecified Plan: Continue statins and fibrates. Start Zetia. LDL goal is less than 70. (4) Essential hypertension: Code(s): I10 - Essential (primary) hypertension Plan: Continue lisinopril. Blood pressure goal is equal or less than 130/80. (5) GERD (gastroesophageal reflux disease): Code(s): K21.9 - Gastro-esophageal reflux disease without esophagitis Qualifiers: Esophagitis presence: esophagitis presence not specified Qualified Code(s): K21.9 - Gastro-esophageal reflux disease without esophagitis Plan: Continue PPIs as needed. Orders: Orders Lipid Panel 4 Months E78.5 - Hyperlipidemia, unspecified Microalbumin, Random (w Creat) 4 Months E11.9 - Type 2 diabetes mellitus without complications AMB Hemoglobin A1c Today E11.9 - Type 2 diabetes mellitus without complications, Z79.4 - director long term care (current) use of insulin Comprehensive [place]. Panel Fast 4 Months E11.9 - Type 2 diabetes mellitus without complications, Z79.4 - group home (current) use of insulin Medications: New ezetimibe 10 mg PO DAILY 90 tabs 1RF 90 days Changed From insulin glargine U-300 conc (Toujeo Max U-300 SoloStar) 44 units (0.1467 mL) subcut DAILY 90 days 13.203 mL 1RF E11.42 - Type 2 diabetes mellitus with diabetic polyneuropathy To insulin glargine U-300 conc (Toujeo Max U-300 SoloStar) 43 units (0.1433 mL) subcut DAILY 12.897 mL 1RF 90 days E11.42 - Type 2 diabetes mellitus with diabetic polyneuropathy Refilled cholecalciferol (vitamin D3) 50 mcg PO DAILY 90 caps 1RF 90 days Coding Level of Care Code Est Pt Level 4 (36129) Diagnoses Diabetes mellitus, with long-term current use of insulin E11.9; Z79.4 COPD (chronic obstructive pulmonary disease) J44.9 Hyperlipidemia LDL goal <70 E78.5 Essential hypertension I10 Gastroesophageal reflux disease, unspecified whether esophagitis present K21.9 Esophagitis presence: esophagitis presence not specified Additional Codes DRU-7 Assessment Billing - DRU-7 Assessment Tool: DRU-7 Assessment 09243 ([id number]) Time Spent (min) 25
[2023-12-06 14:10] VITALS: BP 130/70; BMI 30.5
== END 2023-12-06 14:36 | disposition home or self-care (01) ==
PROVIDERS: PCP Internal Medicine; Visit Provider Internal Medicine
DX: E11.9 Type 2 diabetes mellitus without complications (principal); Z79.4 Long term (current) use of insulin; J44.9 Chronic obstructive pulmonary disease, unspecified; E78.5 Hyperlipidemia, unspecified; I10 Essential (primary) hypertension; K21.9 Gastro-esophageal reflux disease without esophagitis
CPT/HCPCS: 83036; 99214

== ENCOUNTER 2024-01-25 09:23 | Outpatient (REF) | payer OTHER, SELFPAY ==
--- NOTE | ~2024-01-25 | CT_ITS ---
EXAMINATION: CT LOW-DOSE SCREENING CHEST WITHOUT CONTRAST CLINICAL INFORMATION: Nicotine dependence, cigarettes, uncomplicated. The patient is a current smoker with a 23 pack-year history of smoking. COMPARISON: CT chest 01/22/2023: Stable small pulmonary nodules. Largest pulmonary nodule is a 4 mm peripheral or subpleural nodule in the right lower lobe axial image 388 series 5. No new pulmonary nodule. TECHNIQUE: Multidetector volumetric CT imaging of the chest is performed on a Siemens SOMATOM Definition scanner without contrast using low dose technique. Additional 2D coronal and sagittal reformatted images and axial 3D maximum intensity projection (MIP) images are generated on the CT workstation. This CT examination was performed using dose optimization techniques as appropriate, variously including the following: *Automated exposure control *Adjustment of mA and/or kV according to patient size (this includes techniques or standardized protocols for targeted exams where dose is matched to indication/reason for exam; i.e. extremities or head) *Use of iterative reconstruction technique TOTAL EXAM DLP: 66 mGy-cm. CTDIvol: 1.78 mGy. FINDINGS: PULMONARY NODULES: Multiple small pulmonary nodules are seen, none larger than 4 mm, all unchanged (for example, right lower lobe lateral 4 mm 5:397 compare prior 5:388). Randall images of all have been saved. No new, increasing sized or suspicious nodule is seen. LUNGS: Lungs bilaterally symmetrically expanded. Moderate emphysematous changes are present along with moderate bronchial wall thickening. No effusion or pneumothorax. Central airways patent. MEDIASTINUM: No mediastinal, hilar or axillary adenopathy or free fluid collection. CORONARY ARTERY CALCIFICATION: Extensive THYROID GLAND: Unremarkable to the extent seen. CARDIOVASCULAR STRUCTURES: Aortic and heart size normal. No pericardial effusion. CHEST WALL/AXILLA: Unremarkable. UPPER ABDOMEN: Spleen is mildly enlarged at 12.8 cm. Included portions of the solid organs in the upper abdomen otherwise unremarkable on noncontrast imaging. OSSEOUS STRUCTURES: No suspicious focal findings. CT/CT lung screening IMPRESSION: Benign-appearing stable micronodules with no evidence to suggest malignancy. ASSESSMENT: 1. Lung-RADS Category 2: Benign appearance or behavior of nodules. N/A 2. Lung-RADS Category S: Negative. There are no clinically significant or potentially clinically significant findings not related to the lungs requiring urgent additional evaluation. RECOMMENDATION: Continued routine annual low-dose CT lung screening in 1 year is recommended. An order for CT CHEST LOW DOSE CANCER SCREENING ([id number]) can be placed.
== END 2024-01-25 09:24 | disposition home or self-care (01) ==
LOC: HO.CT 09:23
PROVIDERS: PCP Internal Medicine; Visit Provider Physician Assistant Medical
DX: Z12.2 Encounter for screening for malignant neoplasm of respiratory organs (principal); F17.210 Nicotine dependence, cigarettes, uncomplicated
CPT/HCPCS: 71271

== ENCOUNTER 2024-03-06 09:30 | Emergency (ER) | payer OTHER, SELFPAY ==
--- NOTE | ~2024-03-06 | XR_ITS ---
EXAMINATION: XR CHEST CLINICAL INFORMATION: Cough COMPARISON: 07/08/2017 TECHNIQUE: Frontal view of the chest was obtained. FINDINGS: No significant abnormality is noted involving the heart, lungs, mediastinum, bony thorax or soft tissues. XR/XR chest 1V IMPRESSION: Unremarkable examination.
[2024-03-06 09:32] VITALS: BP 134/65; PULSE 99; RESP 20; TEMP 37; O2SAT 95; BMI 30.6
[2024-03-06] MEDS: predniSONE 20 MG TABLET 60 MG PO (10:14)
[2024-03-06] MEDS: Benzonatate 100 MG CAPSULE 200 MG PO (10:15)
--- NOTE | 2024-03-06 10:16 | PC.NURSE ---
pt medicated per order
--- NOTE | 2024-03-06 10:23 | ED.URI ---
HPI - URI/Sore Throat General Chief Complaint: Upper Respiratory Symptoms Stated Complaint: Asthma Time Seen by Provider: 03/06/24 09:52 Source: patient Mode of arrival: ambulatory Limitations: language barrier History of Present Illness HPI Narrative: 64-year-old male with a past medical history of asthma, COPD, HTN, and DM presents emergency department, with family, for complaints of cough, sore throat, congestion, and body aches since last Wednesday. He reports he has not been feeling well and has been using his prescribed maintenance and rescue inhalers at home with no improvement. He reports he has been intermittently short of breath with wheezing despite the medications. He denies any fevers, chills, headache, vision changes, nausea, vomiting, diarrhea, chest pain Pertinent positives and negatives discussed in HPI Related Data Previous Rx's ?Medication ?Instructions ?Recorded lancets 28 gauge (FreeStyle #100 ea 08/23/20 Lancets) pen needle, diabetic 32 gauge x #100 ea 08/23/20 5/32 (BD Ultra-Fine Lupe Pen Needle) blood-glucose meter (FreeStyle #1 ea 08/04/21 Lite Meter kit) cyclobenzaprine 10 mg tablet 10 mg PO BEDTIME PRN muscle spasm 10/30/21 30 days #30 tabs budesonide-formoterol HFA 160 2 puff inhalation BID 30 days 11/19/21 mcg-4.5 mcg/actuation aerosol #10.2 grams inhaler (Symbicort) inhalational spacing device #1 ea 11/19/21 (Aerochamber MV spacer) blood sugar diagnostic (FreeStyle 1 strip miscellaneous TID 30 days 04/27/22 Lite Strips) #100 strips sumatriptan succinate 25 mg tablet 25 mg PO Q2-4H PRN migraine 09/26/22 headache 30 days #9 tabs albuterol sulfate 2.5 mg/3 mL 2.5 mg (3 mL) inhalation Q6H PRN 03/22/23 (0.083 %) solution for nebulization shortness of breath or wheezing 30 days #180 mL budesonide 160 mcg-glycopyr 9 2 inh inhalation BID 30 days #10.7 03/22/23 mcg-formot 4.8 mcg/actuation HFA grams inhaler (Breztri Aerosphere) atorvastatin 80 mg tablet 80 mg PO BEDTIME 90 days #90 tabs 04/15/23 fluticasone propionate 50 2 spray intranasal DAILY 30 days 07/19/23 mcg/actuation nasal #15.8 mL spray,suspension montelukast 10 mg tablet 10 mg PO BEDTIME #90 tabs 07/26/23 omeprazole 20 mg capsule,delayed 20 mg PO DAILY #90 caps 11/21/23 release cholecalciferol (vitamin D3) 50 50 mcg PO DAILY 90 days #90 caps 12/06/23 mcg (2,000 unit) capsule ezetimibe 10 mg tablet 10 mg PO DAILY 90 days #90 tabs 12/06/23 insulin glargine U-300 conc 300 43 unit (0.1433 mL) subcut DAILY 12/06/23 unit/mL (3 mL) subcutaneous pen 90 days #12.897 mL (Toujeo Max U-300 SoloStar) fenofibrate 54 mg tablet 54 mg PO DAILY 90 days #90 tabs 01/25/24 lisinopril 10 mg tablet 10 mg PO DAILY 90 days #90 tabs 01/25/24 dulaglutide 3 mg/0.5 mL 3 mg (0.5 mL) subcut QWEEK 90 days 03/01/24 subcutaneous pen injector #6.5 mL (Trulicity) naproxen 500 mg tablet 500 mg PO Q12H PRN pain 90 days 03/01/24 #180 tabs nebulizers (VixOne Nebulizer-Adult #1 ea 03/01/24 Mask) benzonatate 200 mg capsule 200 mg PO TID PRN cough #20 caps 03/06/24 prednisone 5 mg tablets in a dose 5 mg PO DIRECTED #21 ea 03/06/24 pack Allergies Allergy/AdvReac Type Severity Reaction Status Date / Time Penicillins [PENICILLINS] Allergy Intermediate THROAT Verified 03/06/24 09:36 CLOSES varenicline Allergy Intermediate inadequate Verified 03/06/24 09:36 response barium sulfate AdvReac Intermediate inadequate Verified 03/06/24 09:36 response Review of Systems Review of Systems: Yes all other systems are reviewed and are negative [facility] Past Medical History Medical History (Updated 03/06/24 @ 11:36 by Donna Rivas NP) Nicotine dependence, cigarettes, uncomplicated Murmur Pulmonary nodules Chronic cough Asthma COPD (chronic obstructive pulmonary disease) Right shoulder pain Essential hypertension Obesity due to excess calories GERD (gastroesophageal reflux disease) Mild non proliferative diabetic retinopathy Type 2 diabetes mellitus with diabetic polyneuropathy Surgical History History of blepharoplasty History of eye surgery Family History Family History Father Diabetes Asthma Mother Liver failure Daughter In good health Son In good health Sister No problems noted. Brother No problems noted. Social History Social History Household Members: Spouse and Family Housing: House Alcohol intake: current Alcohol intake frequency: a few times a month Alcohol type: beer Patient Tobacco Use Status: Current everyday Tobacco user Tobacco use type: Cigarette Cigarettes Per Day: 10 Years Smoked: (onset 17, 1/2ppd x 44yrs, 22pyh) e-Cigarette/Vaping Use: Never Used Second Hand Smoke Exposure: No Advance Directives: No Advance Directives Information Provided: Yes Do you have a plan to hurt others: No Plan service: No Current occupational status: disabled Cognitive needs: No Hearing needs: No Vision needs: Yes Physical Exam Vital Signs: Vital Signs: Last Vital Signs Temp 98.9 F 03/06/24 12:17 Pulse 101 H 03/06/24 12:17 Resp 16 03/06/24 12:17 BP 137/73 03/06/24 12:17 Pulse Ox 97 03/06/24 12:17 O2 Del Method Room Air 03/06/24 12:17 BMI result Body Mass Index 30.6 Nursing notes and vital signs reviewed. GENERAL APPEARANCE: A&0 x 4, generally well appearing, no acute distress HENMT: Normal to inspection, atraumatic, face symmetrical. Normal external ears, nose, and oropharynx clear. EYE: PERRLA, EOM intact, structures appear normal NECK: Supple without stiffness or restricted ROM. HEART: Normal rate and regular rhythm, normal S1/S2, no M/R/G LUNGS: Wheezing thoughout. Able to speak in complete sentences. No crackles or rhonchi auscultated BACK: No CVAT, no obvious deformity EXTREMITIES: Moving all extremities without difficulty. Normal capillary refill. NEUROLOGICAL: Alert and oriented, moving all 4 extremities with equal strength. CN not formally tested but appearing grossly intact. Observed to ambulate with normal gait. Cognition normal SKIN: Warm and dry without any lesions, rash, or visible sores Medications Administered Discontinued Medications Generic Name Dose Route Start Last Admin Trade Name Varsha PRN Reason Stop Dose Admin Benzonatate 200 mg 03/06/24 10:04 03/06/24 10:15 Benzonatate 100 Mg Capsule PO 03/06/24 10:05 200 mg ONCE ONE Administration Albuterol Sulfate 2.5 mg/ 0 mg 03/06/24 10:22 03/06/24 11:46 Albuterol/Ipratropium 3 ml INHALE 03/06/24 10:23 2 dose ONCE ONE Administration Albuterol Sulfate 2.5 mg/ 0 mg 03/06/24 11:46 03/06/24 11:53 Albuterol/Ipratropium 3 ml INHALE 03/06/24 11:47 1 dose ONCE ONE Administration Prednisone 60 mg 03/06/24 10:04 03/06/24 10:14 Prednisone 20 Mg Tablet PO 03/06/24 10:05 60 mg ONCE ONE Administration Medical Decision Making Medical Decision Making MDM Narrative: Old records reviewed for previous imaging, lab studies, ECGs, and notes. Patient was assessed the emergency department with no acute distress or toxicity noted. With nasal serology negative for COVID, flu, and RSV and chest x-ray showing no signs of acute pneumonia, per my interpretation. Patient given 2 breathing treatments here in the emergency department and lung sounds CTA after the DuoNebs. Tessalon Perles given for cough and prednisone for asthma exacerbation most likely due to a viral upper respiratory infection. Patient educated to follow up with his PCP in addition to pulmonology for further evaluation. Patient is safe for discharge at this time with plan for [id number] Tylenol and/or NSAID such as ibuprofen or naproxen for fever/discomfort with dosing as per packaging. HPI, PE, diagnostics, and plan discussed with patient and family with no unanswered questions at this time. Strict return precautions given to return to the emergency department with new, worsening, or concerning emergent symptoms. Recommended to follow-up with there primary care provider in 24-48 hours for further treatment and management. Differential Diagnosis Differential Diagnoses: The differential diagnosis associated with the presentation includes But not limited to pneumonia, COPD, asthma, CHF, ACS, viral syndrome, sepsis, malignancy Admission/Observation Consideration of admission/observation: Escalation of care including admission/observation considered However symptoms were improved on discharge Lab Data MDM Lab Attestation statement: I reviewed the patient's lab results. Labs: Lab Results 03/06/24 Range/Units 10:01 Influenza Type A (PCR) NEGATIVE (Negative) Influenza Type B (PCR) NEGATIVE (Negative) RSV RNA Qual (PCR) NEGATIVE (Negative) SARS-CoV-2 RNA (RT-PCR) NEGATIVE (Negative) Independent Historian Clinical information obtained from an independent historian. History obtained from or confirmed by: Other Family Prescription Management I considered prescription management with: Antibiotic Antibiotics were considered, however; no bacterial infection was identified at this time. Chronic Conditions Patient?s care impacted by: Diabetes, Hypertension and Other Discharge Plan Discharge Clinical Impression: Acute asthma exacerbation, URI (upper respiratory infection) Patient Disposition: Home, Self-Care Instructions: Asthma (ED), Upper Respiratory Infection (ED), Wheezing (ED) Prescriptions: New prednisone 5 mg tablets,dose pack 5 mg PO DIRECTED Qty: 21 0RF Rx Instructions: see taper instructions benzonatate 200 mg capsule 200 mg PO TID PRN (Reason: cough) Qty: 20 0RF No Action FreeStyle Lite Strips Strip 1 strip miscellaneous TID 30 Days Qty: 100 11RF sumatriptan succinate 25 mg tablet 25 mg PO Q2-4H PRN (Reason: migraine headache) 30 Days Qty: 9 0RF Rx Instructions: do not exceed 8 doses per 24 hrs albuterol sulfate 2.5 mg /3 mL (0.083 %) solution for nebulization 2.5 mg inhalation Q6H PRN (Reason: shortness of breath or wheezing) 30 Days Qty: 180 11RF Breztri Aerosphere 160-9-4.8 mcg/actuation HFA aerosol inhaler 2 inh inhalation BID 30 Days Qty: 10.7 11RF fluticasone propionate 50 mcg/actuation spray,suspension 2 spray intranasal DAILY 30 Days Qty: 15.8 11RF montelukast 10 mg tablet 10 mg PO BEDTIME Qty: 90 3RF omeprazole 20 mg capsule,delayed release(DR/EC) 20 mg PO DAILY Qty: 90 3RF lisinopril 10 mg tablet 10 mg PO DAILY 90 Days Qty: 90 1RF fenofibrate 54 mg tablet 54 mg PO DAILY 90 Days Qty: 90 1RF naproxen 500 mg tablet 500 mg PO Q12H PRN (Reason: pain) 90 Days Qty: 180 1RF Trulicity 3 mg/0.5 mL pen injector 3 mg subcut QWEEK 90 Days Qty: 6.5 1RF (DME) nebulizers [VixOne Nebulizer-Adult Mask] Misc See Rx Instructions .Route Qty: 1 0RF Rx Instructions: As directed ezetimibe 10 mg tablet 10 mg PO DAILY 90 Days Qty: 90 1RF cholecalciferol (vitamin D3) 50 mcg (2,000 unit) capsule 50 mcg PO DAILY 90 Days Qty: 90 1RF Toujeo Max U-300 SoloStar 300 unit/mL (3 mL) insulin pen 43 unit subcut DAILY 90 Days Qty: 12.897 1RF cyclobenzaprine 10 mg tablet 10 mg PO BEDTIME PRN (Reason: muscle spasm) 30 Days Qty: 30 0RF atorvastatin 80 mg tablet 80 mg PO BEDTIME 90 Days Qty: 90 3RF (DME) lancets [FreeStyle Lancets] [facility] See Rx Instructions .ROUTE .MEDSUPPLY Qty: 100 11RF Rx Instructions: As directed three time a day (DME) pen needle, diabetic [BD Ultra-Fine Lupe Pen Needle] 32 gauge x 5/32 needle See Rx Instructions .ROUTE .MEDSUPPLY Qty: 100 11RF Rx Instructions: As directed three times a day (DME) blood-glucose meter [FreeStyle Lite Meter] Kit See Rx Instructions .ROUTE .MEDSUPPLY Qty: 1 0RF Rx Instructions: As directed 3x/day (DME) Aerochamber MV Spacer See Rx Instructions .ROUTE .MEDSUPPLY Qty: 1 0RF Rx Instructions: As directed budesonide-formoterol [Symbicort] 160-4.5 mcg/actuation HFA aerosol inhaler 2 puff inhalation BID 30 Days Qty: 10.2 11RF Referrals: Bibi Anne MD [Primary Care Provider] - Stand Alone Forms: Work/School Release Interventions: ED Discharge Assessment Last Done: 03/06/24 12:17 Discharge Date/Time: 03/06/24 12:18 Print Language: Sinhala
[2024-03-06 10:30] VITALS: PULSE 88; RESP 20; O2SAT 97
[2024-03-06 10:48] LABS: Influenza A PCR NEGATIVE (Negative); Influenza B PCR NEGATIVE (Negative); Resp Syncy Virus RNA Qual PCR NEGATIVE (Negative); SARS COV2 PCR INHOUSE NEGATIVE (Negative)
--- NOTE | 2024-03-06 11:09 | PC.NURSE ---
updraft was given by RT
[2024-03-06] MEDS: Albuterol Sulfate 2.5 MG, Albuterol/Iprat 2.5/0.5MG 3 ML 3 ML INHALE ×2 (11:46→11:53)
[2024-03-06 11:51] VITALS: BP 137/73; PULSE 97; RESP 17; TEMP 37.2; O2SAT 97
[2024-03-06 11:55] VITALS: PULSE 101; RESP 16; O2SAT 94
[2024-03-06 12:17] VITALS: BP 137/73; PULSE 101; RESP 16; TEMP 37.2; O2SAT 97
== END 2024-03-06 12:18 | disposition home or self-care (01) ==
PROVIDERS: Emergency Provider Emergency Medicine; PCP Internal Medicine
DX: J45.901 Unspecified asthma with (acute) exacerbation (principal); J06.9 Acute upper respiratory infection, unspecified; R05.9 Cough, unspecified; J02.9 Acute pharyngitis, unspecified; R09.81 Nasal congestion; J44.9 Chronic obstructive pulmonary disease, unspecified; E11.42 Type 2 diabetes mellitus with diabetic polyneuropathy; Z79.85 Long-term (current) use of injectable non-insulin antidiabetic drugs; F17.210 Nicotine dependence, cigarettes, uncomplicated; Z03.818 Encounter for observation for suspected exposure to other biological agents ruled out; Z79.899 Other long term (current) drug therapy
CPT/HCPCS: 0241U; 71045; 94640; 99284

== ENCOUNTER 2024-03-09 14:39 | Outpatient (AMB) | payer OTHER, SELFPAY ==
--- NOTE | 2024-03-09 14:53 | A.OFFPC_ITS ---
Vital Signs 03/09/24 14:55 Height 5 ft 6 in Weight 187 lb BMI 30.2 BP 130/70 Blood Pressure Location Lt brachial Position Sitting Pulse 106 H Pulse Source Pulse Oximeter Pulse Oximetry (%) 96 Oxygen Delivery Method Room Air Intake Visit Reasons: [facility] 03/06 Acute asthma/URI [employer] Required: No Accompanied by: Self / Same As Patient Allergies Penicillins [PENICILLINS] Allergy (Intermediate, Verified 03/09/24 15:04) THROAT CLOSES varenicline Allergy (Intermediate, Verified 03/09/24 15:04) inadequate response barium sulfate Adverse Reaction (Intermediate, Verified 03/09/24 15:04) inadequate response Medication List - Last Reconciled 03/09/24 by Bibi Frank MD albuterol sulfate 2.5 mg (3 mL) inhalation Q6H PRN 30 days atorvastatin 80 mg PO BEDTIME 90 days benzonatate 200 mg PO TID PRN blood sugar diagnostic (FreeStyle Lite Strips) 1 strip miscellaneous TID 30 days blood-glucose meter (FreeStyle Lite Meter kit) As directed 3x/day budesonide-formoterol 160-4.5 mcg/actuation (Symbicort) 2 puffs inhalation BID 30 days pvmagcsavm-pvbrjfeo-lcsvekadwo 160-9-4.8 mcg/actuation (Breztri Aerosphere) 2 inhalations inhalation BID 30 days cholecalciferol (vitamin D3) 50 mcg PO DAILY 90 days cyclobenzaprine 10 mg PO BEDTIME PRN 30 days dulaglutide (Trulicity) 3 mg (0.5 mL) subcut QWEEK 90 days ezetimibe 10 mg PO DAILY 90 days fenofibrate 54 mg PO DAILY 90 days fluticasone propionate 50 mcg/actuation 2 sprays intranasal DAILY 30 days inhalational spacing device (Aerochamber MV spacer) As directed insulin glargine U-300 conc (Toujeo Max U-300 SoloStar) 43 units (0.1433 mL) subcut DAILY 90 days lancets (FreeStyle Lancets) As directed three time a day lisinopril 10 mg PO DAILY 90 days montelukast 10 mg PO BEDTIME naproxen 500 mg PO Q12H PRN 90 days nebulizers (VixOne Nebulizer-Adult Mask) As directed omeprazole 20 mg PO DAILY pen needle, diabetic (BD Ultra-Fine Lupe Pen Needle) As directed three times a day prednisone 5 mg PO DIRECTED sumatriptan succinate 25 mg PO Q2-4H PRN 30 days Tobacco use date assessed: 12/06/23 Fall risk assessment: No Falls in past year Last assessed Fall Risk: 03/09/24 Dental Screening Dental Screen Date: 12/06/23 HPI HPI Comments History of Present Illness Details This is a 64-year-old male with diabetes mellitus type 2 on long-term current use of insulin, hypertension, hyperlipidemia and GERD that complains of chest congestion and shortness of breath with cough that started about a week ago. He went to ER and chest x-ray was negative. Was prescribed benzonatate. Was negative for flu, COVID and RSV. I will prescribe antibiotics. A1c elevated but he has been out of Trulicity and Lantus for awhile and I will refill it. Blood pressure stable. LDL goal should be less than 70. GERD stable with PPIs. [facility] Medical History (Updated 03/09/24 @ 16:25 by Bibi Frank MD) Nicotine dependence, cigarettes, uncomplicated Murmur Pulmonary nodules Chronic cough Asthma COPD (chronic obstructive pulmonary disease) Right shoulder pain Essential hypertension Obesity due to excess calories GERD (gastroesophageal reflux disease) Mild non proliferative diabetic retinopathy Type 2 diabetes mellitus with diabetic polyneuropathy Surgical History History of blepharoplasty History of eye surgery Family History Father Diabetes Asthma Mother Liver failure Daughter In good health Son In good health Sister No problems noted. Brother No problems noted. Social History Household Members: Spouse and Family Housing: House Alcohol intake: current Alcohol intake frequency: a few times a month Alcohol type: beer Patient Tobacco Use Status: Current everyday Tobacco user Tobacco use type: Cigarette Cigarettes Per Day: 10 Years Smoked: (onset 17, 1/2ppd x 44yrs, 22pyh) Packs per year/per ci.00 e-Cigarette/Vaping Use: Never Used Second Hand Smoke Exposure: No service: No Current occupational status: disabled Cognitive needs: No Hearing needs: No Vision needs: Yes Questionnaire Thrive Questionnaire Date Thrive assessed: 12/06/23 DRU-7 AMB Questionnaire DRU-7 Date DRU - 7 assessed: 12/06/23 Source: Developed by Drs. Terry Griffith, Paulina Trinidad, Ze Smith and colleagues, with an educational romain from [employer]. Review of Systems Const All systems reviewed & are unremarkable except as noted in HPI and below Reports lethargy and Reports weakness Card Denies chest pain at rest, Denies chest pain with activity, Denies edema, Denies irregular heart rhythm, Denies claudication, Reports dyspnea, Reports dyspnea on exertion, Denies orthopnea, Denies paroxysmal nocturnal dyspnea and Denies slow heart rate Resp Reports chest congestion, Reports cough, Reports dyspnea, Reports dyspnea on exertion and Reports wheezing GI Denies abdominal pain, Denies change in bowel habits, Denies excessive flatus, Denies nausea and Denies vomiting Denies urinary hesitancy, Denies urinary incontinence and Denies urinary urgency Musc Denies atrophy, Denies deformity and Denies limited range of motion Neuro Reports weakness Aller/Immun Reports wheezing Physical exam (Primary Care) Vital Signs: Last Vital Signs Pulse 106 H 03/09/24 14:55 BP 130/70 03/09/24 14:55 Pulse Ox 96 03/09/24 14:55 Oxygen Delivery Method Room Air 03/09/24 14:55 BMI result Body Mass Index 30.2 BMI Assessment/Plan discussion: High BMI High, discussed plan: lifestyle, weight reduction, dietary and physical activity Tobacco/Smoking Status: Tobacco use Status Tobacco use date assessed 12/06/23 03/09/24 14:53 Patient Tobacco Use Status Current everyday Tobacco 03/09/24 14:53 Tobacco use type Cigarette 03/09/24 14:53 e-Cigarette/Vaping Use Never Used 03/09/24 14:53 Thrive Assessment: Date of Thrive Assessment Date Thrive assessed 12/06/23 03/09/24 14:53 Resp Effort & Inspection: Actively coughing Auscultation: rhonchi and wheezes Cardio Jugular venous distension: no JVD Rate: regular rate Rhythm: regular rhythm Heart sounds: S1 normal heart sound present and S2 normal heart sound present Extrem General: Yes full ROM Results AMB Hemoglobin A1c AMB Hemoglobin A1c 7.9 % Last Edit by MARTÍNEZ [place] on 03/09/24 15:0 0 Results Reviewed Results Reviewed: Laboratory Last Values Hgb A1c (Clinic) 7.9 % (4.0-6.0) H 03/09/24 14:54 Assessment and Plan Assessment & Plan (1) Bronchitis: Code(s): J40 - Bronchitis, not specified as acute or chronic Plan: Start Z-Leon. (2) Diabetes mellitus, with long-term current use of insulin: Code(s): E11.9 - Type 2 diabetes mellitus without complications; Z79.4 - group home (current) use of insulin Qualifiers: Diabetes mellitus type: type 2 Diabetes mellitus complication status: with hyperglycemia Qualified Code(s): E11.65 - Type 2 diabetes mellitus with hyperglycemia; Z79.4 - group home (current) use of insulin Plan: Restart Trulicity and insulin. A1c goal is equal or less than 7%. (3) Hyperlipidemia LDL goal <70: Code(s): E78.5 - Hyperlipidemia, unspecified Plan: Continue statins. LDL goal should be less than 70. (4) Essential hypertension: Code(s): I10 - Essential (primary) hypertension Plan: Continue lisinopril. Blood pressure goal is equal or less than 130/80. (5) GERD (gastroesophageal reflux disease): Code(s): K21.9 - Gastro-esophageal reflux disease without esophagitis Qualifiers: Esophagitis presence: esophagitis presence not specified Qualified Code(s): K21.9 - Gastro-esophageal reflux disease without esophagitis Plan: Continue PPIs. 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 Medications: New azithromycin Take 2 tabs the first day, then 1 tab the next 4 days 250 mg PO DAILY 6 tabs 0RF 5 days Refilled insulin glargine U-300 conc (Toujeo Max U-300 SoloStar) 43 units (0.1433 mL) subcut DAILY 12.897 mL 1RF 90 days E11.42 - Type 2 diabetes mellitus with d iabetic polyneuropathy dulaglutide (Trulicity) 3 mg (0.5 mL) subcut QWEEK 6.5 mL 1RF 90 days Coding Level of Care Code Est Pt Level 4 (65555) Complex EM visit Add On G2211 Diagnoses Bronchitis J40 Type 2 diabetes mellitus with hyperglycemia, with long-term current use of insulin E11.65; Z79.4 Diabetes mellitus type: type 2 Diabetes mellitus complication status: with hyperglycemia Hyperlipidemia LDL goal <70 E78.5 Essential hypertension I10 Gastroesophageal reflux disease, unspecified whether esophagitis present K21.9 Esophagitis presence: esophagitis presence not specified Time Spent (min) 22
[2024-03-09 14:55] VITALS: BP 130/70; PULSE 106; O2SAT 96; BMI 30.2
== END 2024-03-09 15:10 | disposition home or self-care (01) ==
PROVIDERS: PCP Internal Medicine; Visit Provider Internal Medicine
DX: J40 Bronchitis, not specified as acute or chronic (principal); E11.65 Type 2 diabetes mellitus with hyperglycemia; Z79.4 Long term (current) use of insulin; E78.5 Hyperlipidemia, unspecified; I10 Essential (primary) hypertension; K21.9 Gastro-esophageal reflux disease without esophagitis; E11.9 Type 2 diabetes mellitus without complications
CPT/HCPCS: 83036; 99214; G2211

== ENCOUNTER 2024-04-06 13:14 | Outpatient (AMB) | payer OTHER, SELFPAY ==
[2024-04-06 13:16] VITALS: BP 124/68; BMI 29.9
--- NOTE | 2024-04-06 13:16 | A.OFFPC_ITS ---
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 Accompanied by: Self / Same As Patient Allergies Penicillins [PENICILLINS] Allergy (Intermediate, Verified 04/06/24 13:33) THROAT CLOSES varenicline Allergy (Intermediate, Verified 04/06/24 13:33) inadequate response barium sulfate Adverse Reaction (Intermediate, Verified 04/06/24 13:33) inadequate response Medication List - Last Reconciled 04/06/24 by Bibi Frank MD albuterol sulfate 2.5 mg (3 mL) inhalation Q6H PRN 30 days atorvastatin 80 mg PO BEDTIME 90 days blood sugar diagnostic (FreeStyle Lite Strips) 1 strip miscellaneous TID 30 days blood-glucose meter (FreeStyle Lite Meter kit) As directed 3x/day budesonide-formoterol 160-4.5 mcg/actuation (Symbicort) 2 puffs inhalation BID 30 days bpsyxmgzub-frjizqiz-poitemjkyn 160-9-4.8 mcg/actuation (Breztri Aerosphere) 2 inhalations inhalation BID 30 days cholecalciferol (vitamin D3) 50 mcg PO DAILY 90 days cyclobenzaprine 10 mg PO BEDTIME PRN 30 days dulaglutide (Trulicity) 3 mg (0.5 mL) subcut QWEEK 90 days ezetimibe 10 mg PO DAILY 90 days fenofibrate 54 mg PO DAILY 90 days fluticasone propionate 50 mcg/actuation 2 sprays intranasal DAILY 30 days inhalational spacing device (Aerochamber MV spacer) As directed insulin glargine U-300 conc (Toujeo Max U-300 SoloStar) 43 units (0.1433 mL) subcut DAILY 90 days lancets (FreeStyle Lancets) As directed three time a day lisinopril 10 mg PO DAILY 90 days montelukast 10 mg PO BEDTIME naproxen 500 mg PO Q12H PRN 90 days nebulizers (VixOne Nebulizer-Adult Mask) As directed omeprazole 20 mg PO DAILY pen needle, diabetic (BD Ultra-Fine Lupe Pen Needle) As directed three times a day sumatriptan succinate 25 mg PO Q2-4H PRN 30 days Tobacco use date assessed: 12/06/23 Fall risk assessment: No Falls in past year Last assessed Fall Risk: 04/06/24 Dental Screening Dental Screen Date: 12/06/23 HPI HPI Comments History of Present Illness Details This is a 64-year-old male with diabetes mellitus type 2 on long-term current use of insulin, hypertension, hyperlipidemia and COPD that comes today for follow-up on his conditions. A1c is elevated but he was out of Trulicity up until last week. No sugars at home are improving. Blood pressure stable. Last LDL was not on goal and this will be repeated for the next office visit. COPD well controlled with long-acting inhaler and use rescue inhaler less than 2 times a month. Denies any chest pain or shortness on breath. [facility] Medical History Nicotine dependence, cigarettes, uncomplicated Murmur Pulmonary nodules Chronic cough Asthma COPD (chronic obstructive pulmonary disease) Right shoulder pain Essential hypertension Obesity due to excess calories GERD (gastroesophageal reflux disease) Mild non proliferative diabetic retinopathy Type 2 diabetes mellitus with diabetic polyneuropathy Surgical History History of blepharoplasty History of eye surgery Family History Father Diabetes Asthma Mother Liver failure Daughter In good health Son In good health Sister No problems noted. Brother No problems noted. Social History Household Members: Spouse and Family Housing: House Alcohol intake: current Alcohol intake frequency: a few times a month Alcohol type: beer Patient Tobacco Use Status: Current everyday Tobacco user Tobacco use type: Cigarette Cigarettes Per Day: 10 Years Smoked: (onset 17, 1/2ppd x 44yrs, 22pyh) e-Cigarette/Vaping Use: Never Used Second Hand Smoke Exposure: No service: No Current occupational status: disabled Cognitive needs: No Hearing needs: No Vision needs: Yes Questionnaire Thrive Questionnaire Date Thrive assessed: 12/06/23 DRU-7 AMB Questionnaire DRU-7 Date DRU - 7 assessed: 12/06/23 Source: Developed by Drs. Terry Griffith, Paulina Trinidad, Ze Smith and colleagues, with an educational romain from [employer]. Review of Systems Const All systems reviewed & are unremarkable except as noted in HPI and below Card Denies chest pain at rest, Denies chest pain with activity, Denies edema, Denies irregular heart rhythm, Denies claudication, Denies dyspnea, Denies dyspnea on exertion, Denies orthopnea, Denies paroxysmal nocturnal dyspnea and Denies slow heart rate Resp Denies cough, Denies dyspnea and Denies dyspnea on exertion GI Denies abdominal pain, Denies change in bowel habits, Denies excessive flatus, Denies nausea and Denies vomiting Denies urinary hesitancy, Denies urinary incontinence and Denies urinary urgency Neuro Denies behavioral changes and Denies lack of coordination Psych Denies behavioral changes Physical exam (Primary Care) Vital Signs: Last Vital Signs BP 124/68 04/06/24 13:16 BMI result Body Mass Index 29.9 BMI Assessment/Plan discussion: High BMI High, discussed plan: lifestyle, weight reduction, dietary and physical activity Tobacco/Smoking Status: Tobacco use Status Tobacco use date assessed 12/06/23 04/06/24 13:19 Patient Tobacco Use Status Current everyday Tobacco 04/06/24 13:19 Tobacco use type Cigarette 04/06/24 13:19 e-Cigarette/Vaping Use Never Used 04/06/24 13:19 Are you ready to quit: No Tobacco cessation counseling provided: Yes Items discussed: QuitWorks Relapse Prevention: discussed the importance of a supportive environment, disc ussed negative mood or depression after quitting, weight gain after smoking is common and discussed dietary, exercise and/or lifestyle changes Thrive Assessment: Date of Thrive Assessment Date Thrive assessed 12/06/23 04/06/24 13:19 Resp Effort & Inspection: normal respiratory effort Auscultation: clear to auscultation bilaterally Cardio Jugular venous distension: no JVD Rate: regular rate Rhythm: regular rhythm Heart sounds: S1 normal heart sound present and S2 normal heart sound present Extrem General: Yes full ROM Assessment and Plan Assessment & Plan (1) Diabetes mellitus, with long-term current use of insulin: Code(s): E11.9 - Type 2 diabetes mellitus without complications; Z79.4 - manager terminal (current) use of insulin Qualifiers: Diabetes mellitus type: type 2 Diabetes mellitus complication status: with hyperglycemia Qualified Code(s): E11.65 - Type 2 diabetes mellitus with hyperglycemia; Z79.4 - penitentiary (current) use of insulin Plan: Continue insulin and Trulicity. A1c goal is equal or less than 7%. (2) Hyperlipidemia LDL goal <70: Code(s): E78.5 - Hyperlipidemia, unspecified Plan: Continue statins. LDL goal is less than 70. (3) COPD (chronic obstructive pulmonary disease): Code(s): J44.9 - Chronic obstructive pulmonary disease, unspecified Plan: Continue long-acting inhaler. Use rescue inhaler as needed. (4) Essential hypertension: Code(s): I10 - Essential (primary) hypertension Plan: Continue lisinopril. Blood pressure goal is equal or less than 130/80 Orders: Orders Microalbumin, Random (w Creat) 4 Months E11.9 - Type 2 diabetes mellitus without complications Comprehensive [place]. Panel Fast 4 Months E11.65 - Type 2 diabetes mellitus with hyperglycemia, Z79.4 - manager terminal (current) use of insulin Vitamin D 25-OH Total 4 Months E55.9 - Vitamin D deficiency, unspecified Lipid Panel 4 Months E78.5 - Hyperlipidemia, unspecified Coding Level of Care Code Est Pt Level 4 (83805) Complex EM visit Add On G2211 Diagnoses Type 2 diabetes mellitus with hyperglycemia, with long-term current use of insulin E11.65; Z79.4 Diabetes mellitus type: type 2 Diabetes mellitus complication status: with hyperglycemia Hyperlipidemia LDL goal <70 E78.5 COPD (chronic obstructive pulmonary disease) J44.9 Essential hypertension I10 Time Spent (min) 23
== END 2024-04-06 13:40 | disposition home or self-care (01) ==
PROVIDERS: PCP Internal Medicine; Visit Provider Internal Medicine
DX: E11.65 Type 2 diabetes mellitus with hyperglycemia (principal); Z79.4 Long term (current) use of insulin; E78.5 Hyperlipidemia, unspecified; J44.9 Chronic obstructive pulmonary disease, unspecified; I10 Essential (primary) hypertension
CPT/HCPCS: 99214; G2211

== ENCOUNTER 2024-08-28 06:09 | Outpatient (REF) | payer OTHER, SELFPAY ==
[2024-08-28 07:14] LABS: Alanine Aminotransferase 22 U/L (0-40); Alkaline Phosphatase 107 U/L (39-117); Anion Gap 11 (12-20); Aspartate Amino Transferase 21 U/L (5-37); Bilirubin Total 0.5 mg/dL (0.0-1.0); Blood Urea Nitrogen 18 mg/dL (9-16); Carbon Dioxide 27 mmol/L (22-29); Chloride 108 mmol/L (96-108); Cholesterol 166 mg/dL (<200); Estimated Glomerular Filt Rate > 60; Glucose Fasting 136 mg/dL (60-99); HDL Cholesterol 37 mg/dL (>40); LDL Cholesterol Calculated 99 mg/dL (<100); Potassium 3.8 mmol/L (3.3-5.1); Sodium 142 mmol/L (135-145); Total Protein 6.4 g/dL (6.5-8.0); Triglycerides 151 mg/dL (<150)
[2024-08-28 07:14] LABS: Creatinine Urine 106.37 mg/dL; Microalbumin Urine < 5.0 mg/L
[2024-08-28 07:28] LABS: Vitamin D 25-OH Total 17.8 ng/mL (>30)
== END 2024-08-28 06:10 | disposition home or self-care (01) ==
LOC: HO.LAB 06:09
PROVIDERS: PCP Internal Medicine; Visit Provider Internal Medicine
DX: E11.65 Type 2 diabetes mellitus with hyperglycemia (principal); E55.9 Vitamin D deficiency, unspecified; E78.5 Hyperlipidemia, unspecified; Z79.4 Long term (current) use of insulin
CPT/HCPCS: 36415; 80053; 80061; 82043; 82306; 82570

== ENCOUNTER 2024-09-15 14:51 | Outpatient (AMB) | payer OTHER, SELFPAY ==
--- NOTE | 2024-09-15 15:01 | A.OFFPC_ITS ---
Vital Signs 09/15/24 15:09 Height 5 ft 6 in Weight 180 lb 4 oz BMI 29.1 BP 110/60 Blood Pressure Location Lt brachial Position Sitting Pulse 96 Pulse Source Pulse Oximeter Pulse Oximetry (%) 96 Oxygen Delivery Method Room Air Intake Visit Reasons: Annual Exam Intake Note: Patient is here today for a physical. 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 by: Self / Same As Patient Allergies Penicillins [PENICILLINS] Allergy (Intermediate, Verified 09/15/24 15:24) THROAT CLOSES varenicline Allergy (Intermediate, Verified 09/15/24 15:24) inadequate response barium sulfate Adverse Reaction (Intermediate, Verified 09/15/24 15:24) inadequate response Medication List - Last Reconciled 09/15/24 by Bibi Frank MD albuterol sulfate 2.5 mg (3 mL) inhalation Q6H PRN 30 days atorvastatin 80 mg PO BEDTIME 90 days blood sugar diagnostic (FreeStyle Lite Strips) 1 strip miscellaneous TID 30 days blood-glucose meter (FreeStyle Lite Meter kit) As directed 3x/day budesonide-formoterol 160-4.5 mcg/actuation (Symbicort) 2 puffs inhalation BID 30 days psjuswnbip-bdehakpt-izekxqbfcl 160-9-4.8 mcg/actuation (Breztri Aerosphere) 2 inhalations inhalation BID 30 days cholecalciferol (vitamin D3) 50 mcg PO DAILY 90 days cyclobenzaprine 10 mg PO BEDTIME PRN 30 days dulaglutide (Trulicity) 3 mg (0.5 mL) subcut QWEEK 90 days ezetimibe 10 mg PO DAILY 90 days fenofibrate 54 mg PO DAILY 90 days fluticasone propionate 50 mcg/actuation 2 sprays intranasal DAILY 30 days inhalational spacing device (Aerochamber MV spacer) As directed insulin glargine U-300 conc (Toujeo Max U-300 SoloStar) 43 units (0.1433 mL) subcut DAILY 90 days lancets (FreeStyle Lancets) As directed three time a day lisinopril 10 mg PO DAILY 90 days montelukast 10 mg PO BEDTIME naproxen 500 mg PO Q12H PRN 90 days nebulizers (VixOne Nebulizer-Adult Mask) As directed omeprazole 20 mg PO DAILY pen needle, diabetic (BD Ultra-Fine Lupe Pen Needle) As directed three times a day sumatriptan succinate 25 mg PO Q2-4H PRN 30 days Tobacco use date assessed: 09/15/24 Fall risk assessment: 1 Fall in past year Last assessed Fall Risk: 09/15/24 Dental Screening Dental Screen Date: 09/15/24 Did you have a dental visit in the last 12 months?: No Did you have a dental problem in the last 6 months where you did not have access to dental care?: No Was dental information given to patient?: Patient declined HPI HPI Comments History of Present Illness Details The patient is a 64-year-old male presenting for an annual physical examination. He has a history of Chronic Obstructive Pulmonary Disease (COPD) and receives regular vaccinations due to this condition, specifically vaccinations for pneumonia. He has not undergone a colonoscopy, although it was previously discussed; he reports not receiving a follow-up call. The patient mentioned allergies to Penicillin, Chantix, which did not work for him, and Varium. He is currently using a pompita, which is likely an inhaler, and is on medications including atorvastatin 80 mg for cholesterol management. He requires a refill for atorvastatin. His LDL cholesterol level has decreased but has not yet reached the goal of 70. He is also prescribed Trulicity for diabetes management, which has been refilled at 3 mg once a week, and Toujeo at a dosage of 43 units. The patient smokes more than 5 cigarettes a day and is not ready to quit at this time. He has previously been screened for lung cancer with no findings of cancer. He does not consume alcohol and reports no depression or anxiety. No chest pain, shortness of breath, or urination issues have been rep orted. - Received a Tdap vaccination in 2016 - Up-to-date pneumonia vaccinations due to COPD - Screened for lung cancer in the past y ear with no evidence of cancer - Discussed colonoscopy screening; clay nt has not had it yet - Discussed cholesterol management; goal is to achieve LDL < 70 [facility] Medical History Nicotine dependence, cigarettes, uncomplicated Murmur Pulmonary nodules Chronic cough Asthma COPD (chronic obstructive pulmonary disease) Right shoulder pain Essential hypertension Obesity due to excess calories GERD (gastroesophageal reflux disease) Mild non proliferative diabetic retinopathy Type 2 diabetes mellitus with diabetic polyneuropathy Surgical History History of blepharoplasty History of eye surgery Family History Father Diabetes Asthma Mother Liver failure Daughter In good health Son In good health Sister No problems noted. Brother No problems noted. Social History Household Members: Spouse and Family Housing: House Alcohol intake: current Alcohol intake frequency: a few times a month Alcohol type: beer Patient Tobacco Use Status: Current everyday Tobacco user Tobacco use type: Cigarette Cigarettes Per Day: 6 Years Smoked: (onset 17, 1/2ppd x 44yrs, 22pyh) e-Cigarette/Vaping Use: Never Used Second Hand Smoke Exposure: No service: No Current occupational status: disabled Cognitive needs: No Hearing needs: No Vision needs: Yes Questionnaire PHQ-9 Over the last 2 weeks, how often have you been bothered by any of the following problems? 1. Little interest or pleasure in doing things: not at all 2. Feeling down, depressed, or hopeless: not at all 3. Trouble falling or staying asleep, or sleeping too much: not at all 4. Feeling tired or having little energy: not at all 5. Poor appetite or overeating: not at all 6. Feeling bad about yourself - or that you are a failure or have let yourself or your family down: not at all 7. Trouble concentrating on things, such as reading the newspaper or watching television: not at all 8. Moving or speaking so slowly that other people could have noticed. Or the opposite - being so fidgety or restless that you have been moving around a lot more than usual: not at all 9. Thoughts that you would be better off or of hurting yourself in some way: not at all Total score: 0 Depression Screening Interpretation: Negative Depression Screening Done: Yes 78893 - PHQ-9 Billing: Yes Source: Developed by Drs. Terry Griffith, Paulina Trinidad, Ze Smith and colleagues, with an educational romain from [employer]. Thrive Questionnaire Date Thrive assessed: 09/15/24 I am a: Patient What is your living situation today?: I have a steady place to live Within the past 12 months, did the food you bought not last and you didn't have the money to get more?: Never true Within the past 12 months, did you worry whether your food would run out before you got money to buy more?: Never true Do you have trouble paying for medicines?: No Do you have trouble getting transportation to medical appointments?: No Do you have trouble paying your heating and electricity bill?: No Do you have trouble taking care of your child, family member or friend?: No Do you have trouble with day-to-day activities such as bathing, preparing meals, shopping, managing finances, etc.?: No Are you currently unemployed and looking for a job?: No Are you interested in more education?: No Please select the resources that you would like help with: None Currently or been in a relationship where the following occur: No concerns reported THRIVE Score: 0 AUDIT C Alcohol Use Questionnaire (AUDIT-C) 1. How often do you have a drink containing alcohol?: Never 3. How often do you have six or more drinks on one occasion?: Never Total Score: 0 Score Reviewed/Action Taken: No DRU-7 AMB Questionnaire DRU-7 Date DRU - 7 assessed: 09/15/24 Feeling nervous, anxious, or on edge: 0 = Not at all Not being able to stop or control worryin = Not at all Worrying too much about different things: 0 = Not at all Trouble relaxin = Not at all Being so restless that it is hard to sit still: 0 = Not at all Becoming easily annoyed or irritable: 0 = Not at all Feeling afraid as if something awful might happen: 0 = Not at all Total DRU-7 score (0-4 normal; 5-9 mild; 10-14 moderate; 15-21 severe): 0 Source: Developed by Drs. Terry Griffith, Paulina Trinidad, Ze Smith and colleagues, with an educational romain from [employer]. DRU-7 Assessment Billing DRU-7 Assessment Tool: DRU-7 Assessment 36602 Review of Systems Const Details: - Respiratory: Denies shortness of breath, chest pain - Neurological: Denies depression, anxiety - Gastrointestinal: Denies urination and bowel abnormalities Physical exam (Primary Care) Vital Signs: Last Vital Signs Pulse 96 09/15/24 15:09 BP 110/60 09/15/24 15:09 Pulse Ox 96 09/15/24 15:09 Oxygen Delivery Method Room Air 09/15/24 15:09 BMI result Body Mass Index 29.1 BMI Assessment/Plan discussion: High BMI High, discussed plan: lifestyle, weight reduction, dietary and physical activity Tobacco/Smoking Status: Tobacco use Status Tobacco use date assessed 09/15/24 09/15/24 15:18 Patient Tobacco Use Status Current everyday Tobacco 09/15/24 15:02 Tobacco use type Cigarette 09/15/24 15:02 e-Cigarette/Vaping Use Never Used 09/15/24 15:02 Are you ready to quit: No Tobacco cessation counseling provided: Yes Items discussed: Nicotine replacement and QuitWorks Relapse Prevention: discussed the importance of a supportive environment, discussed extending NRT, discussed negative mood or depression after quitting, weight gain after smoking is common and discussed dietary, exercise and/or lifestyle changes Number of minutes spent counselin CPT code: 06622 - 4-10 Minutes PHQ-9: PHQ-9 Score PHQ-9: Total score 0 09/15/24 15:28 Depression Screening Interpretation: Negative Thrive Assessment: Date of Thrive Assessment Date Thrive assessed 09/15/24 09/15/24 15:02 Currently or been in a relationship where the following occur: No concerns reported Const Other: General: Cooperative, healthy appearing, comfortable, no acute distress and well developed Orientation: Patient oriented x3 Limitations: No limitations Head: Normal to inspection Ears: Hearing grossly normal bilaterally Nose: Normal external nose present Face and sinus: Normal facial exam Eyes: Appearance normal, both eyes and all related structures Neck: Normal visual inspection and Yes full ROM Respiratory: Normal respiratory effort and able to speak in complete sentences. Clear to auscultation bilaterally Cardiovascular: Regular rate and rhythm. Normal S1 and S2 GI: Normal to inspection. Soft to palpation and nontender Skin: No rashes or lesions noted Neuro: Patient oriented x3 Extremities: Normal to inspection Office Procedures Flu Questionnaire Does the patient have a severe egg allergy?: No Does the patient have severe life threatening allergies?: No Does the patient have a fever or illness today?: No Has the patient ever had Guillain-[place] Syndrome?: No Has the patient ever had any past reaction to a flu shot?: No Results AMB Hemoglobin A1c AMB Hemoglobin A1c 6.5 % Last Edit by ALEXANDRO Pizarro on 09/15/24 15:28 Immunizations Fluarix Triv [id number] (PF) 45 mcg (15 mcg x 3)/0.5 mL IM syringe Performing Provider: Bibi Frank MD 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 mL IM Left Deltoid 0.5 mL [id number] 03/12/25 [id number] [employer] VIS Given Date VIS Provided VIS Publication Date 09/15/24 Single Vaccine 21 Eligibility Eligibility Date Funding Source Not VF Eligible 09/15/24 Private Results Reviewed Results Reviewed: Laboratory Last Values Hgb A1c (Clinic) 6.5 % (4.0-6.0) H 09/15/24 15:23 Coding Level of Care Code Est Pt Prev Care 40-64y(22494) Diagnoses Physical exam Z00.00 Type 2 diabetes mellitus with hyperglycemia, with long-term current use of insulin E11.65; Z79.4 Diabetes mellitus type: type 2 Diabetes mellitus complication status: with hyperglycemia COPD (chronic obstructive pulmonary disease) J44.9 Additional Codes DRU-7 Assessment Billing - DRU-7 Assessment Tool: DRU-7 Assessment 58895 ([id number]) PHQ-9 - 84979 - PHQ-9 Billing: Yes ([id number]) Vital Signs *Quality* - CPT code: 57009 - 4-10 Minutes ([id number]) Time Spent (min) 34 Assessment & Plan Assessment & Plan (1) Physical exam: Code(s): Z00.00 - Encounter for general adult medical examination without abnormal findings Category: Medical (2) Diabetes mellitus, with long-term current use of insulin: Code(s): E11.9 - Type 2 diabetes mellitus without complications; Z79.4 - [facility] (current) use of insulin Category: Medical Qualifiers: Diabetes mellitus type: type 2 Diabetes mellitus complication status: with hyperglycemia Qualified Code(s): E11.65 - Type 2 diabetes mellitus with hyperglycemia; Z79.4 - [facility] (current) use of insulin (3) COPD (chronic obstructive pulmonary disease): Code(s): J44.9 - Chronic obstructive pulmonary disease, unspecified Category: Medical Plan - Discuss colonoscopy referral for colorectal cancer screening - Refill atorvastatin prescription; continue monitoring LDL levels - Advise continuation of Trulicity and Toujeo for diabetes management - Recommend smoking cessation resources; discuss nicotine patches as an option - Encourage scheduling eye examination due to lapse over a year - Monitor for any allergic reactions to current medications Patient was informed and verbally consented to the use of an ambient scribe for clinic note documentation during this visit. During the visit, I discussed the need for a colonoscopy as part of routine cancer screening and confirmed not having received prior notification for scheduling. The patient?s cholesterol management was reviewed, emphasizing the importance of achieving an LDL level below 70, with continued use of atorvastatin. I also discussed his current medications, ensuring refills for Trulicity and Toujeo are in process. I addressed the patient's smoking habit and recommended considering nicotine replacement therapy. I advised the patient to consider scheduling an eye examination due to a lapse of over a year. Language and communication barriers were acknowledged, and I noted the preference for [place] communication in medical encounters. Orders: Orders Influenza [id number] Immunization Today Z23 - Encounter for immunization Vitamin D 25-OH Total 4 Months E55.9 - Vitamin D deficiency, unspecified Lipid Panel 4 Months E78.5 - Hyperlipidemia, unspecified Microalbumin, Random (w Creat) 4 Months R80.9 - Proteinuria, unspecified Comprehensive [place]. 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 Medications: Refilled atorvastatin 80 mg PO BEDTIME 90 tabs 3RF 90 days dulaglutide (Trulicity) 3 mg (0.5 mL) subcut QWEEK 6.5 mL 1RF 90 days fenofibrate 54 mg PO DAILY 90 tabs 1RF 90 days sumatriptan succinate do not exceed 8 doses per 24 hrs 25 mg PO Q2-4H PRN 9 tabs 0RF migraine headache 30 days R51.9 - Headache, unspecified cholecalciferol (vitamin D3) 50 mcg PO DAILY 90 caps 1RF 90 days ezetimibe 10 mg PO DAILY 90 tabs 1RF 90 days insulin glargine U-300 conc (Toujeo Max U-300 SoloStar) 43 units (0.1433 mL) subcut DAILY 12.897 mL 1RF 90 days E11.42 - Type 2 diabetes mellitus with diabetic polyneuropathy lisinopril 10 mg PO DAILY 90 tabs 1RF 90 days E11.42 - Type 2 diabetes mellitus with diabetic polyneuropathy omeprazole 20 mg PO DAILY 90 caps 3RF Patient Instructions: - Expect call for colonoscopy scheduling - Continue atorvastatin as prescribed; check LDL levels periodically - Use Eugenia as directed - Explore smoking cessation with nicotine patches if interested - Schedule eye exam due to lapse of over a year - Report any medication allergies or adverse reactions - Call if any new symptoms or concerns arise
[2024-09-15 15:09] VITALS: BP 110/60; PULSE 96; O2SAT 96; BMI 29.1
== END 2024-09-15 15:38 | disposition home or self-care (01) ==
PROVIDERS: PCP Internal Medicine; Visit Provider Internal Medicine
DX: Z00.00 Encounter for general adult medical examination without abnormal findings (principal); E11.65 Type 2 diabetes mellitus with hyperglycemia; Z79.4 Long term (current) use of insulin; J44.9 Chronic obstructive pulmonary disease, unspecified; Z23 Encounter for immunization

== ENCOUNTER 2025-01-12 07:54 | Outpatient (REF) | payer OTHER, SELFPAY ==
--- OUTSIDE RECORDS SUMMARY | 2025-01-12 07:58 | XMS_ITS | Clinical Summary ---
Author Organization [employer] Address [address] [place] [address] Care Team Providers Care Senior Network Engineer Name Role Phone Unavailable Primary Care Provider Unavailabl e Immunizations Name Administration Dates Next Due Pfizer Covid-19 Vaccine 12+ Bivalent 09/11/2022 Social History Tobacco Use Types Packs/Day Years Used Date Smoking Tobacco: Never Assessed Sex and Gender Information Value Date Recorded Sex Assigned at Not on file Legal Sex Male 9:44 AM EST Gender Identity Not on file Sexual Orientation Not on file Plan of Treatment Health Maintenance Due Date Last Done Comments CT Colonography 1960 Colonoscopy 1960 Colorectal Cancer Screening 1960 Depression Screening 1960 FIT DNA/Cologuard 1960 FIT 1960 FOBT 1960 HIV Screening 1960 Lipid Panel 1960 SDOH Screening 1960 Sigmoidoscopy 1960 Alcohol/Substance Use Screening 1972 Tobacco Screening 1972 Hepatitis C Screening 1978 DTaP/Tdap/Td Vaccines (1 - Tdap) 1979 Pneumococcal Vaccine: 50+ Ye ars (1 of 1 - PCV) 2010 Zoster Vaccines (1 of 2) 2010 COVID-19 Vaccine (2 - 2023-2 5 season) 2024 09/11/2022 Influenza Vaccine (#1) 2024 RSV Patients and Pa tients Aged 60 years or older (1 - 1-dose 75+ series) 2035 HIB Vaccines Aged Out No longer eligi ble based on patient's age to complete this topic HPV Vaccines Aged Out No longer eligi ble based on patient's age to complete this topic Hepatitis A Vaccines Aged Out No long er eligible based on patient's age to complete this topic Hepatitis B Vaccines Aged Out No long er eligible based on patient's age to complete this topic IPV Vaccines Aged Out No longer eligi ble based on patient's age to complete this topic Meningococcal Vaccine Aged Out No gast[place] sangeetha eligible based on patient's age to complete this topic RSV under 20 months Aged Out No longe r eligible based on patient's age to complete this topic Rotavirus Vaccines Aged Out No longer eligible based on patient's age to complete this topic Insurance [facility] STANDARD [facility] SN[facility] OPTIONS (HMO D-SNP)
[2025-01-12 09:23] LABS: Creatinine Urine 197.36 mg/dL; Microalbum/Creatinine Ratio Ur 17.7 ug/mg cr (<30)
[2025-01-12 09:23] LABS: Alanine Aminotransferase 25 U/L (0-40); Albumin Level 4.2 g/dL (3.5-5.0); Alkaline Phosphatase 108 U/L (39-117); Anion Gap 12 (12-20); Aspartate Amino Transferase 20 U/L (5-37); Bilirubin Total 0.4 mg/dL (0.0-1.0); Blood Urea Nitrogen 24 mg/dL (9-16); Calcium 8.9 mg/dL (8.4-10.2); Carbon Dioxide 25 mmol/L (22-29); Chloride 108 mmol/L (96-108); Cholesterol 169 mg/dL (<200); Estimated Glomerular Filt Rate > 60; Glucose Fasting 200 mg/dL (60-99); HDL Cholesterol 36 mg/dL (>40); LDL Cholesterol Calculated 105 mg/dL (<100); Potassium 4.2 mmol/L (3.3-5.1); Sodium 141 mmol/L (135-145); Total Protein 6.7 g/dL (6.5-8.0); Triglycerides 141 mg/dL (<150)
== END 2025-01-12 07:55 | disposition home or self-care (01) ==
LOC: HO.LAB 07:54
PROVIDERS: PCP Internal Medicine; Visit Provider Internal Medicine
DX: E11.65 Type 2 diabetes mellitus with hyperglycemia (principal); E78.5 Hyperlipidemia, unspecified; Z79.4 Long term (current) use of insulin; E55.9 Vitamin D deficiency, unspecified
CPT/HCPCS: 36415; 80053; 80061; 82043; 82306; 82570

== ENCOUNTER 2025-01-15 14:45 | Outpatient (AMB) | payer OTHER, SELFPAY ==
--- NOTE | 2025-01-15 14:50 | MHC.PC.OV ---
Vital Signs 01/15/25 14:53 Height 5 ft 6 in Weight 185 lb BMI 29.9 BP 130/78 Blood Pressure Location Lt brachial Position Sitting Intake Visit Reasons: dm Intake Note: Patient here for a follow up DM Ground Mixer Required: Yes Ground Mixer Language: Florist Manager Name: Bibi Frank MD Information Interpreted: non-clinical & clinical Accompanied by: Self / Same As Patient Allergies Penicillins [PENICILLINS] Allergy (Intermediate, Verified 01/15/25 15:01) THROAT CLOSES varenicline Allergy (Intermediate, Verified 01/15/25 15:01) inadequate response barium sulfate Adverse Reaction (Intermediate, Verified 01/15/25 15:01) inadequate response Medication List - Last Reconciled 01/15/25 by Bibi Frank MD albuterol sulfate 2.5 mg (3 mL) inhalation Q6H PRN 30 days atorvastatin 80 mg PO BEDTIME 90 days blood sugar diagnostic (FreeStyle Lite Strips) 1 strip miscellaneous TID 30 days blood-glucose meter (FreeStyle Lite Meter kit) As directed 3x/day budesonide-formoterol 160-4.5 mcg/actuation (Symbicort) 2 puffs inhalation BID 30 days tybspmyxqd-khuisupm-cdiyovicin 160-9-4.8 mcg/actuation (Breztri Aerosphere) 2 inhalations inhalation BID 30 days cholecalciferol (vitamin D3) 50 mcg PO DAILY 90 days cyclobenzaprine 10 mg PO BEDTIME PRN 30 days dulaglutide (Trulicity) 3 mg (0.5 mL) subcut QWEEK 90 days ezetimibe 10 mg PO DAILY 90 days fenofibrate 54 mg PO DAILY 90 days fluticasone propionate 50 mcg/actuation 2 sprays intranasal DAILY 30 days inhalational spacing device (Aerochamber MV spacer) As directed insulin glargine U-300 conc (Toujeo Max U-300 SoloStar) 43 units (0.1433 mL) subcut DAILY 90 days lancets (FreeStyle Lancets) As directed three time a day lisinopril 10 mg PO DAILY 90 days montelukast 10 mg PO BEDTIME naproxen 500 mg PO Q12H PRN 90 days nebulizers (VixOne Nebulizer-Adult Mask) As directed omeprazole 20 mg PO DAILY pen needle, diabetic (BD Ultra-Fine Lupe Pen Needle) As directed three times a day sumatriptan succinate 25 mg PO Q2-4H PRN 30 days Tobacco use date assessed: 09/15/24 Fall risk assessment: No Falls in past year Last assessed Fall Risk: 01/15/25 Dental Screening Dental Screen Date: 09/15/24 HPI HPI Comments History of Present Illness Details The patient is a 64-year-old male presenting for follow-up management of chronic conditions, including diabetes, hyperlipidemia, and COPD. His HbA1c recently measured 8.1%, reflecting poor glycemic control, and his LDL cholesterol is elevated. The patient is being treated with atorvastatin and ezetimibe for hyperlipidemia, and fenofibrate for triglyceride management. Blood pressure remains stable and well-managed on current medications. Hypertension stable with meds. He reports that his COPD is stable, with no recent hospitalizations or significant exacerbations, although he did run out of his bronchodilator recently. His insulin dosage is being increased from 43 to 46 units due to ongoing hyperglycemia. The patient also has a past history of migraine, managed with sumatriptan, and GERD treated with omeprazole. There is no recent history of acute respiratory infections, but he uses montelukast as part of his regimen. [facility] Medical History Nicotine dependence, cigarettes, uncomplicated Murmur Pulmonary nodules Chronic cough Asthma COPD (chronic obstructive pulmonary disease) Right shoulder pain Essential hypertension Obesity due to excess calories GERD (gastroesophageal reflux disease) Mild non proliferative diabetic retinopathy Type 2 diabetes mellitus with diabetic polyneuropathy Surgical History History of blepharoplasty History of eye surgery Family History Father Diabetes Asthma Mother Liver failure Daughter In good health Son In good health Sister No problems noted. Brother No problems noted. Social History Household Members: Spouse and Family Housing: House Alcohol intake: current Alcohol intake frequency: a few times a month Alcohol type: beer Patient Tobacco Use Status: Current everyday Tobacco user Tobacco use type: Cigarette Cigarettes Per Day: 6 Years Smoked: (onset 17, 1/2ppd x 44yrs, 22pyh) e-Cigarette/Vaping Use: Never Used Second Hand Smoke Exposure: No service: No Current occupational status: disabled Cognitive needs: No Hearing needs: No Vision needs: Yes Questionnaire PHQ-9 Over the last 2 weeks, how often have you been bothered by any of the following problems? 1. Little interest or pleasure in doing things: not at all 2. Feeling down, depressed, or hopeless: not at all 3. Trouble falling or staying asleep, or sleeping too much: not at all 4. Feeling tired or having little energy: not at all 5. Poor appetite or overeating: not at all 6. Feeling bad about yourself - or that you are a failure or have let yourself or your family down: several days 7. Trouble concentrating on things, such as reading the newspaper or watching television: not at all 8. Moving or speaking so slowly that other people could have noticed. Or the opposite - being so fidgety or restless that you have been moving around a lot more than usual: not at all 9. Thoughts that you would be better off or of hurting yourself in some way: not at all Total score: 1 Depression Screening Interpretation: Negative Depression Screening Done: Yes 14270 - PHQ-9 Billing: Yes Source: Developed by Drs. Terry Griffith, Paulina Trinidad, Ze Smith and colleagues, with an educational romain from [email or web address]. Thrive Questionnaire Date Thrive assessed: 01/15/25 I am a: Patient What is your living situation today?: I have a steady place to live Within the past 12 months, did the food you bought not last and you didn't have the money to get more?: Never true Within the past 12 months, did you worry whether your food would run out before you got money to buy more?: Never true Do you have trouble paying for medicines?: No Do you have trouble getting transportation to medical appointments?: No Do you have trouble paying your heating and electricity bill?: No Do you have trouble taking care of your child, family member or friend?: No Do you have trouble with day-to-day activities such as bathing, preparing meals, shopping, managing finances, etc.?: No Are you currently unemployed and looking for a job?: Yes Are you interested in more education?: No Please select the resources that you would like help with: None Currently or been in a relationship where the following occur: No concerns reported THRIVE Score: 0 AUDIT C Alcohol Use Questionnaire (AUDIT-C) 1. How often do you have a drink containing alcohol?: Never Total Score: 0 Score Reviewed/Action Taken: No DRU-7 AMB Questionnaire DRU-7 Date DRU - 7 assessed: 01/15/25 Feeling nervous, anxious, or on edge: 0 = Not at all Not being able to stop or control worryin = Not at all Worrying too much about different things: 0 = Not at all Trouble relaxin = Not at all Being so restless that it is hard to sit still: 0 = Not at all Becoming easily annoyed or irritable: 0 = Not at all Feeling afraid as if something awful might happen: 2 = More than half the days Total DRU-7 score (0-4 normal; 5-9 mild; 10-14 moderate; 15-21 severe): 2 Source: Developed by Drs. Terry Griffith, Paulina Trinidad, Ze Smith and colleagues, with an educational romain from [email or web address]. DRU-7 Assessment Billing DRU-7 Assessment Tool: DRU-7 Assessment 80482 Review of Systems Const All systems reviewed & are unremarkable except as noted in HPI and below Card Denies chest pain at rest, Denies chest pain with activity, Denies edema, Denies irregular heart rhythm, Denies claudication, Denies dyspnea, Denies dyspnea on exertion, Denies orthopnea, Denies paroxysmal nocturnal dyspnea and Denies slow heart rate Resp Denies cough, Denies dyspnea and Denies dyspnea on exertion Physical exam (Primary Care) Vital Signs: Last Vital Signs BP 130/78 01/15/25 14:53 BMI result Body Mass Index 29.9 Tobacco/Smoking Status: Tobacco use Status Tobacco use date assessed 09/15/24 01/15/25 14:51 Patient Tobacco Use Status Current everyday Tobacco 01/15/25 14:51 Tobacco use type Cigarette 01/15/25 14:51 e-Cigarette/Vaping Use Never Used 01/15/25 14:51 PHQ-9: PHQ-9 Score PHQ-9: Total score 1 01/15/25 14:51 Depression Screening Interpretation: Negative Thrive Assessment: Date of Thrive Assessment Date Thrive assessed 01/15/25 01/15/25 14:57 Currently or been in a relationship where the following occur: No concerns reported Resp Effort & Inspection: normal respiratory effort Auscultation: clear to auscultation bilaterally Cardio Jugular venous distension: no JVD Rate: regular rate Rhythm: regular rhythm Heart sounds: S1 normal heart sound present and S2 normal heart sound present Extrem General: Yes full ROM Results AMB Hemoglobin A1c AMB Hemoglobin A1c 8.1 % Last Edit by MARTÍNEZ [place] on 01/15/25 15:00 Results Reviewed Results Reviewed: Laboratory Last Values Hgb A1c (Clinic) 8.1 % (4.0-6.0) H 01/15/25 14:50 Coding Level of Care Code Est Pt Level 4 (98274) Complex EM visit Add On G2211 Diagnoses Type 2 diabetes mellitus with hyperglycemia, with long-term current use of insulin E11.65; Z79.4 Diabetes mellitus type: type 2 Diabetes mellitus complication status: with hyperglycemia Hyperlipidemia LDL goal <70 E78.5 COPD (chronic obstructive pulmonary disease) J44.9 Essential hypertension I10 Gastroesophageal reflux disease, unspecified whether esophagitis present K21.9 Esophagitis presence: esophagitis presence not specified Additional Codes PHQ-9 - 27974 - PHQ-9 Billing: Yes ([id number]) DRU-7 Assessment Billing - DRU-7 Assessment Tool: DRU-7 Assessment 43876 ([id number]) Time Spent (min) 23 Assessment & Plan Assessment & Plan (1) Diabetes mellitus, with long-term current use of insulin: Code(s): E11.9 - Type 2 diabetes mellitus without complications; Z79.4 - intermediate manager (current) use of insulin Category: Medical Qualifiers: Diabetes mellitus type: type 2 Diabetes mellitus complication status: with hyperglycemia Qualified Code(s): E11.65 - Type 2 diabetes mellitus with hyperglycemia; Z79.4 - intermediate manager (current) use of insulin (2) Hyperlipidemia LDL goal <70: Code(s): E78.5 - Hyperlipidemia, unspecified Category: Medical (3) COPD (chronic obstructive pulmonary disease): Code(s): J44.9 - Chronic obstructive pulmonary disease, unspecified Category: Medical (4) Essential hypertension: Code(s): I10 - Essential (primary) hypertension Category: Medical (5) GERD (gastroesophageal reflux disease): Code(s): K21.9 - Gastro-esophageal reflux disease without esophagitis Category: Medical Qualifiers: Esophagitis presence: esophagitis presence not specified Qualified Code(s): K21.9 - Gastro-esophageal reflux disease without esophagitis Plan I will adjust the patient's insulin from 43 to 46 units to improve his glycemic control, continuing current lipid management with atorvastatin, ezetimibe, and fenofibrate. Maintenance of stable COPD is important, and the patient will receive bronchodilator refills and potentially a prednisone prescription to avoid exacerbations. He is to continue sumatriptan and omeprazole for migraine and GERD management, respectively. The patient also needs to follow up on scheduling a CT scan for lung cancer screening. Patient was informed and verbally consented to the use of an ambient scribe for clinic note documentation during this visit. I discussed with the patient the importance of controlling his diabetes, which included increasing his insulin dosage to 46 units due to his elevated HbA1c. We discussed the management of his cholesterol levels with atorvastatin and ezetimibe, and the necessity to continue fenofibrate for triglycerides. The patient is informed of his stable COPD condition and instructed on the need to ensure he has his bronchodilator and potential prednisone use to manage any flare-ups. Management of migraines with sumatriptan and GERD with omeprazole was reinforced. The need for a CT scan for lung cancer surveillance was emphasized, and he was encouraged to coordinate with staff for scheduling. Orders: Orders Lipid Panel 4 Months E78.5 - Hyperlipidemia, unspecified Microalbumin, Random (w Creat) 4 Months R80.9 - Proteinuria, unspecified Vitamin D 25-OH Total 4 Months E55.9 - Vitamin D deficiency, unspecified AMB Hemoglobin A1c Today E11.65 - Type 2 diabetes mellitus with hyperglycemia, Z79.4 - [facility] (current) use of insulin Comprehensive [place]. Panel Fast 4 Months E78.5 - Hyperlipidemia, unspecified Medications: New prednisone Take 4 tabs for 2 days, then 3 tabs for 2 days, then 2 tabs for 2 days, then 1 tab for 2 days 10 mg PO DIRECTED 8 days 20 tabs 0RF Changed From insulin glargine U-300 conc (Toujeo Max U-300 SoloStar) 43 units (0.1433 mL) subcut DAILY 90 days 12.897 mL 1RF E11.42 - Type 2 diabetes mellitus with diabetic polyneuropathy To insulin glargine U-300 conc (Toujeo Max U-300 SoloStar) 46 units (0.1533 mL) subcut DAILY 90 days 13.797 mL 1RF E11.42 - Type 2 diabetes mellitus with diabetic polyneuropathy Refilled atorvastatin 80 mg PO BEDTIME 90 days 90 tabs 3RF fenofibrate 54 mg PO DAILY 90 days 90 tabs 1RF ezetimibe 10 mg PO DAILY 90 days 90 tabs 1RF dnsnvuubji-jyhogooo-ccleubsxop 160-9-4.8 mcg/actuation (Breztri Aerosphere) 2 inhalations inhalation BID 30 days 10.7 grams 11RF albuterol sulfate 2.5 mg (3 mL) inhalation Q6H 30 days PRN 180 mL 11RF shortness of breath or wheezing cholecalciferol (vitamin D3) 50 mcg PO DAILY 90 days 90 caps 1RF Patient Instructions: - Increase insulin dosage to 46 units as directed. - Continue atorvastatin, ezetimibe, and fenofibrate as prescribed for cholesterol and triglyceride management. - Ensure to refill and use the bronchodilator regularly for COPD. - Take sumatriptan and omeprazole as needed for migraines and GERD. - Contact staff to schedule the CT scan for lung cancer screening. - Follow up promptly if any COPD symptoms worsen. - Report any concerns or adverse symptoms related to medication changes immediately.
[2025-01-15 14:53] VITALS: BP 130/78; BMI 29.9
--- OUTSIDE RECORDS SUMMARY | 2025-01-15 16:20 | XMS_ITS | Clinical Summary ---
Author Organization [employer] Address [address] [place] [address] Care Team Providers Care Gang Investigator Name Role Phone Unavailable Primary Care Provider [...] patient's age to complete this topic Insurance [facility] STANDARD [facility] CUSTODIAL OPTIONS (HMO D-SNP)
== END 2025-01-15 15:14 | disposition home or self-care (01) ==
LOC: HO.HMCH 14:46
PROVIDERS: PCP Internal Medicine; Visit Provider Internal Medicine
DX: E11.65 Type 2 diabetes mellitus with hyperglycemia (principal); Z79.4 Long term (current) use of insulin; E78.5 Hyperlipidemia, unspecified; J44.9 Chronic obstructive pulmonary disease, unspecified; I10 Essential (primary) hypertension; K21.9 Gastro-esophageal reflux disease without esophagitis

== ENCOUNTER → 2025-01-15 14:45 | Outpatient (BNVA) | payer OTHER, SELFPAY | PROVIDERS: PCP Internal Medicine; Visit Provider Internal Medicine | DX: E11.65 Type 2 diabetes mellitus with hyperglycemia (principal); E78.5 Hyperlipidemia, unspecified; J44.9 Chronic obstructive pulmonary disease, unspecified; I10 Essential (primary) hypertension; K21.9 Gastro-esophageal reflux disease without esophagitis; Z79.4 Long term (current) use of insulin | CPT/HCPCS: 83036; 96127; 99212 ==

== ENCOUNTER 2025-06-07 14:03 | Outpatient (AMB) | payer OTHER, SELFPAY ==
[2025-06-07 14:24] VITALS: BP 124/72; PULSE 108; O2SAT 95; BMI 30.5
--- NOTE | 2025-06-07 14:24 | A.OFFPC_ITS ---
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 Required: No Accompanied by: Self / Same As Patient Allergies Penicillins (PENICILLINS) Allergy (Intermediate, Verified 06/07/25 14:48) THROAT CLOSES varenicline Allergy (Intermediate, Verified 06/07/25 14:48) inadequate response barium sulfate Adverse Reaction (Intermediate, Verified 06/07/25 14:48) inadequate response Medication List - Last Reconciled 06/07/25 by Bibi Frank MD albuterol sulfate 2.5 mg (3 mL) inhalation Q6H PRN 30 days atorvastatin 80 mg PO BEDTIME 90 days blood sugar diagnostic (FreeStyle Lite Strips) 1 strip miscellaneous TID 30 days blood-glucose meter (FreeStyle Lite Meter kit) As directed 3x/day budesonide-formoterol 160-4.5 mcg/actuation (Symbicort) 2 puffs inhalation BID 30 days rpnunsqwbw-qdodbufn-lnblbyjbkp 160-9-4.8 mcg/actuation (Breztri Aerosphere) 2 inhalations inhalation BID 30 days cholecalciferol (vitamin D3) 50 mcg PO DAILY 90 days cyclobenzaprine 10 mg PO BEDTIME PRN 30 days dulaglutide (Trulicity) 3 mg (0.5 mL) subcut QWEEK 90 days ezetimibe 10 mg PO DAILY 90 days fenofibrate 54 mg PO DAILY 90 days fluticasone propionate 50 mcg/actuation 2 sprays intranasal DAILY 30 days inhalational spacing device (Aerochamber MV spacer) As directed insulin glargine U-300 conc (Toujeo Max U-300 SoloStar) 46 units (0.1533 mL) sub cut DAILY 90 days lancets (FreeStyle Lancets) As directed three time a day lisinopril 10 mg PO DAILY 90 days montelukast 10 mg PO BEDTIME naproxen 500 mg PO Q12H PRN 90 days nebulizers (VixOne Nebulizer-Adult Mask) As directed omeprazole 20 mg PO DAILY pen needle, diabetic (BD Ultra-Fine Lupe Pen Needle) As directed three times a day prednisone 10 mg PO DIRECTED 8 days sumatriptan succinate 25 mg PO Q2-4H PRN 30 days Tobacco use date assessed: 06/07/25 Fall risk assessment: 1 Fall in past year Last assessed Fall Risk: 06/07/25 Dental Screening Dental Screen Date: 06/07/25 Did you have a dental visit in the last 12 months?: No Did you have a dental problem in the last 6 months where you did not have access to dental care?: No Was dental information given to patient?: No HPI HPI Comments History of Present Illness Details The patient is a 65-year-old male presenting with the management of chronic conditions including diabetes, hyperlipidemia, asthma, and COPD. The patient has a history of diabetes mellitus with an A1c of 7.1, indicating that blood glucose levels are near the target range. He is currently on Trulicity 3 mg and Tojillo 46 units once a day for diabetes management. For hyperlipidemia, the patient is on atorvastatin 80 mg, and fenofibrate was discontinued as triglyceride levels were not elevated. The patient uses Symbicort daily for asthma and COPD management and is not currently seeing a optical laboratory manager. Hypertension is well-controlled with a blood pressure reading of 124/72 mmHg, and the patient is on lisinopril. The patient has a penicillin allergy and uses Singulair for allergy management. Recently, the patient sustained a right shoulder injury while fishing, resulting in pain and limited mobility. He is using naproxen for pain management and was advised against imaging due to radiation concerns. [facility] Medical History Nicotine dependence, cigarettes, uncomplicated Murmur Pulmonary nodules Chronic cough Asthma COPD (chronic obstructive pulmonary disease) Right shoulder pain Essential hypertension Obesity due to excess calories GERD (gastroesophageal reflux disease) Mild non proliferative diabetic retinopathy Type 2 diabetes mellitus with diabetic polyneuropathy Surgical History History of blepharoplasty History of eye surgery Family History Father Diabetes Asthma Mother Liver failure Daughter In good health Son In good health Sister No problems noted. Brother No problems noted. Social History Household Members: Spouse and Family Housing: House Alcohol intake: current Alcohol intake frequency: a few times a month Alcohol type: beer Patient Tobacco Use Status: Current everyday Tobacco user Tobacco use type: Cigarette Cigarettes Per Day: 6 Years Smoked: (onset 17, 1/2ppd x 44yrs, 22pyh) e-Cigarette/Vaping Use: Never Used Second Hand Smoke Exposure: No service: No Current occupational status: disabled Cognitive needs: No Hearing needs: No Vision needs: Yes Questionnaire Thrive Questionnaire Date Thrive assessed: 01/15/25 I am a: Patient What is your living situation today?: I have a steady place to live Within the past 12 months, did the food you bought not last and you didn't have the money to get more?: Never true Within the past 12 months, did you worry whether your food would run out before you got money to buy more?: Never true Do you have trouble paying for medicines?: No Do you have trouble getting transportation to medical appointments?: No Do you have trouble paying your heating and electricity bill?: No Do you have trouble taking care of your child, family member or friend?: No Do you have trouble with day-to-day activities such as bathing, preparing meals, shopping, managing finances, etc.?: No Are you currently unemployed and looking for a job?: Yes Are you interested in more education?: No Please select the resources that you would like help with: None Currently or been in a relationship where the following occur: No concerns reported THRIVE Score: 0 AUDIT C Alcohol Use Questionnaire (AUDIT-C) 1. How often do you have a drink containing alcohol?: Never 3. How often do you have six or more drinks on one occasion?: Never Total Score: 0 Score Reviewed/Action Taken: No DRU-7 AMB Questionnaire DRU-7 Date DRU - 7 assessed: 01/15/25 Source: Developed by Drs. Terry Griffith, Paulina Trinidad, Ze Smith and colleagues, with an educational romain from [employer]. Review of Systems Const All systems reviewed & are unremarkable except as noted in HPI and below Card Denies chest pain at rest, Denies chest pain with activity, Denies edema, Denies irregular heart rhythm, Denies claudication, Denies dyspnea, Denies dyspnea on exertion, Denies orthopnea, Denies paroxysmal nocturnal dyspnea and Denies slow heart rate Resp Denies cough, Denies dyspnea and Denies dyspnea on exertion Physical exam (Primary Care) Vital Signs: Last Vital Signs Pulse 108 H 06/07/25 14:24 BP 124/72 06/07/25 14:24 Pulse Ox 95 06/07/25 14:24 Oxygen Delivery Method Room Air 06/07/25 14:24 BMI result Body Mass Index 30.5 BMI Assessment/Plan discussion: High BMI High, discussed plan: lifestyle, weight reduction, dietary and physical activity Tobacco/Smoking Status: Tobacco use Status Tobacco use date assessed 06/07/25 06/07/25 14:40 Patient Tobacco Use Status Current everyday Tobacco 06/07/25 14:26 Tobacco use type Cigarette 06/07/25 14:26 e-Cigarette/Vaping Use Never Used 06/07/25 14:26 Are you ready to quit: No Tobacco cessation counseling provided: Yes Items discussed: Nicotine replacement and QuitWorks Relapse Prevention: discussed the importance of a supportive environment, discussed extending NRT, discussed negative mood or depression after quitting, weight gain after smoking is common and discussed dietary, exercise and/or lifestyle changes Number of minutes spent counselin CPT code: 66134 - 4-10 Minutes Thrive Assessment: Date of Thrive Assessment Date Thrive assessed 01/15/25 06/07/25 14:26 Currently or been in a relationship where the following occur: No concerns reported Resp Effort & Inspection: normal respiratory effort Auscultation: clear to auscultation bilaterally Cardio Jugular venous distension: no JVD Rate: regular rate Rhythm: regular rhythm Heart sounds: S1 normal heart sound present and S2 normal heart sound present Extrem General: Yes full ROM Results AMB Hemoglobin A1c AMB Hemoglobin A1c 7.1 % Last Edit by MARTÍNEZ Guevara on 06/07/25 14 :53 Results Reviewed Results Reviewed: Laboratory Last Values Hgb A1c (Clinic) 7.1 % (4.0-6.0) H 06/07/25 14:41 Coding Level of Care Code Est Pt Level 4 (87484) Complex EM visit Add On G2211 Diagnoses Type 2 diabetes mellitus with hyperglycemia, with long-term current use of insulin E11.65; Z79.4 Diabetes mellitus complication status: with hyperglycemia Diabetes mellitus type: type 2 Essential hypertension I10 Hyperlipidemia LDL goal <70 E78.5 COPD (chronic obstructive pulmonary disease) J44.9 Additional Codes Vital Signs *Quality* - CPT code: 49718 - 4-10 Minutes ([id number]) Time Spent (min) 22 Assessment & Plan Assessment & Plan (1) Diabetes mellitus, with long-term current use of insulin: Code(s): E11.9 - Type 2 diabetes mellitus without complications; Z79.4 - [facility] (current) use of insulin Category: Medical Qualifiers: Diabetes mellitus complication status: with hyperglycemia Diabetes mellitus type: type 2 Qualified Code(s): E11.65 - Type 2 diabetes mellitus with hyperglycemia; Z79.4 - [facility] (current) use of insulin (2) Essential hypertension: Code(s): I10 - Essential (primary) hypertension Category: Medical (3) Hyperlipidemia LDL goal <70: Code(s): E78.5 - Hyperlipidemia, unspecified Category: Medical (4) COPD (chronic obstructive pulmonary disease): Code(s): J44.9 - Chronic obstructive pulmonary disease, unspecified Category: Medical Plan Plan Patient was informed and verbally consented to the use of an ambient scribe for clinic note documentation during this visit. 1. Diabetes Mellitus The patient's diabetes is managed with Trulicity 3 mg and Tojillo 46 units daily, with an A1c of 7.1 indicating near-target glucose control. Follow-up labs are planned for four months to monitor glucose levels. 2. Hyperlipidemia The patient is on atorvastatin 80 mg for hyperlipidemia management. Fenofibrate was discontinued as triglyceride levels were not elevated. 3. Asthma And Copd The patient uses Symbicort daily for asthma and COPD management. He is not curre ntly seeing a optical laboratory manager but is stable on current medications. 4. Hypertension Hypertension is well-controlled with lisinopril and a blood pressure reading of 124/72 mmHg. 5. Right Shoulder Injury The patient sustained a right shoulder injury while fishing, resulting in pain and limited mobility. Naproxen is being used for pain management, and imaging was not pursued due to radiation concerns. Orders: Orders AMB Hemoglobin A1c Today Z13.9 - Encounter for screening, unspecified
== END 2025-06-07 15:00 | disposition home or self-care (01) ==
LOC: HO.HMCH 14:03
PROVIDERS: PCP Internal Medicine; Visit Provider Internal Medicine
DX: E11.65 Type 2 diabetes mellitus with hyperglycemia (principal); Z79.4 Long term (current) use of insulin; I10 Essential (primary) hypertension; E78.5 Hyperlipidemia, unspecified; J44.9 Chronic obstructive pulmonary disease, unspecified; Z13.9 Encounter for screening, unspecified

== ENCOUNTER → 2025-06-07 14:03 | Outpatient (BNVA) | payer OTHER, SELFPAY | PROVIDERS: PCP Internal Medicine; Visit Provider Internal Medicine | DX: E11.65 Type 2 diabetes mellitus with hyperglycemia (principal); I10 Essential (primary) hypertension; E78.5 Hyperlipidemia, unspecified; J44.9 Chronic obstructive pulmonary disease, unspecified; S49.91XA Unspecified injury of right shoulder and upper arm, initial encounter; Z79.4 Long term (current) use of insulin; Z79.899 Other long term (current) drug therapy | CPT/HCPCS: 83036; 99212 ==